=== PATIENT | female | born 1930 | race Caucasian/White ===

== ENCOUNTER → 2017-03-01 | Outpatient (CLI) | payer OTHER | LOC: BMCIMAGING 17:11 | PROVIDERS: ATTEND Family Medicine | DX: M11.232 Other chondrocalcinosis, left wrist (principal); M12.832 Other specific arthropathies, not elsewhere classified, left wrist ==

== ENCOUNTER 2017-06-14 11:50 | Inpatient (IN) | payer OTHER ==
--- NOTE | 2017-06-14 12:12 | EDPHY ---
H & P Stated Complaint: mechanical fall Time Seen by Provider: 06/14/17 12:11 HPI/ROS: CHIEF COMPLAINT: Mechanical fall, headache, pelvic pain HISTORY OF PRESENT ILLNESS: The patient presents to the ED with complaints of headache which is generalized in nature following a mechanical fall. The patient is anticoagulated with Pradaxa. Additionally, the patient has mild pain in her left and right groin. She is not attempted ambulation since the fall. She denies any neck pain, chest pain, difficulty breathing, shortness of breath, numbness, weakness, palpitations or other acute complaints. REVIEW OF SYSTEMS: A comprehensive 10 point review of systems is otherwise negative aside from elements mentioned in the history of present illness. Source: Patient Exam Limitations: No limitations - Personal History Current Tetanus/Diphtheria Vaccine: Unsure Current Tetanus Diphtheria and Acellular Pertussis (TDAP): Unsure - Medical/Surgical History Other PMH: dementia, atrial fibrillation - Social History Smoking Status: Unknown if ever smoked - Physical Exam Exam: General Appearance: Alert, no distress Head: Atraumatic Eyes: Pupils equal, round, reactive ENT, Mouth: No hemotympanum, no oral trauma Neck: Nontender, trachea midline Respiratory: No chest wall tender, subcutaneous air, lungs clear bilaterally Cardiovascular: Regular rate and rhythm Abdomen: Abdomen is soft and nontender, pelvis stable Skin: No lacerations, No abrasion Back: No midline T/L/S pain Extremities: Tenderness to deep palpation and left and right groin, normal range of motion bilateral hips Neurological: A&Ox3, normal motor function, normal sensory exam Constitutional: Initial Vital Signs Temperature (C) 36.7 C 06/14/17 11:57 Heart Rate 78 06/14/17 11:57 Respiratory Rate 15 06/14/17 11:57 Blood Pressure 119/64 06/14/17 11:57 O2 Sat (%) 92 06/14/17 11:57 O2 Delivery Mode Room Air Allergies/Adverse Reactions: Penicillins Allergy (Verified 06/14/17 11:57) Rash MERCURY Allergy (Uncoded 03/15/12 12:56) Rash Home Medications: Medication Instructions Recorded Cholecalciferol Vit D3 [Vitamin D 3,000 units PO DAILY 03/14/12 1000 units (OTC)] Docusate Sodium [Colace 100 MG 100 mg PO HS 03/14/12 (OTC)] Dronedarone HCl [Multaq 400 mg 400 mg PO BIDMEAL 03/14/12 (RX)] Magnesium Oxide [Magnesium Oxide 200 mg PO BID 03/14/12 400 mg (OTC)] Multivitamins [Multivitamin (OTC)] 1 each PO DAILY 03/14/12 Warfarin Sodium [Coumadin (RX)] 2.5 mg PO .MO,WD,FR,SA,DÍAZ 03/14/12 Warfarin Sodium [Coumadin (RX)] 5 mg PO .TUT 03/14/12 Calcium Carbonate [Oyster Shell 1,000 mg PO DAILY 03/15/12 Calcium 500 mg (OTC)] Pharmacy Completed Med List 03/1503/15/12 Medical Decision Making - Diagnostics EKG Interpretation: EKG: Complete interpretation has been separately recorded in the [facility] archive. Summary impression: Atrial fibrillation, rate 104, right bundle branch block Imaging Results: Imaging Impressions Head CT 06/14/17 12:10 Impression: 1. Stable moderate to marked atrophy. 2. No hemorrhage, mass effect, or definite acute peripheral infarct. 3. Stable moderate to marked microvascular ischemic disease. If symptoms worsen, additional imaging may be necessary. Findings discussed with Nathanael Lowe at 13:10 hour, 06/14/2017. Pelvis X-Ray 06/14/17 12:10 Impression: No fracture identified. ED Course/Re-evaluation: The patient presents to emergency department with acute headache following a mechanical fall. She is anticoagulated with Pradaxa. Because of this, she was taken for a stat CT scan of the head to evaluate for possible intracranial hemorrhage. Fortunately, the results of this study demonstrate no evidence of intracranial hemorrhage or other acute traumatic injury. The patient's pelvic x-ray demonstrates no evidence of an acute fracture. Jeovany tempted to ambulate the patient in the emergency department. She is unable to safely ambulate and is having a fair amount of pain in both right left groin. At this point time I do feel she will need to be admitted to the hospital she is clearly a fall risk. She will undergo evaluation by physical therapy and occupational therapy. Consultation was made with the hospitalist service at 2:00 p.m.. I spoke with Dr. Krunal Bills. She will admit the patient. Laboratory database: Patient has a normal hemoglobin and hematocrit. Serum electrolytes are within normal limits. INR was elevated at 1.5. Differential Diagnosis: Differential diagnosis considered includes intracranial hemorrhage, skull fracture, pelvic fracture, hip fracture, hip contusion, retroperitoneal hemorrhage - Data Points Medications Given: Discontinued Medications Fentanyl (Sublimaze) 50 mcg IVP ONCE ONE Stop: 06/14/17 14:35 Last Admin: 06/14/17 15:08 Dose: 50 mcg Sodium Chloride (Ns) 1,000 mls @ 0 mls/hr IV EDNOW ONE; Wide Open PRN Reason: Protocol Stop: 06/14/17 14:04 Last Admin: 06/14/17 14:21 Dose: 1,000 mls Departure - Departure Disposition: [facility] Inpatient Acute Clinical Impression: Fall, Contusion, hip Condition: Good
[2017-06-14] MEDS ORDERED: NS 1,000 ML IV ONE (14:03)
--- NOTE | 2017-06-14 14:20 | CPEKG ---
Heart Rate: 104 RR Interval: 577 QRSD Interval: 162 QT Interval: 388 QTC Interval: 511 QRS [place]: 110 T Wave [place]: -36 EKG Severity - ABNORMAL ECG - EKG Impression: ATRIAL FIBRILLATION, V-RATE 70-152 EKG Impression: RIGHT BUNDLE BRANCH BLOCK EKG Impression: LVH BY VOLTAGE Electronically Signed By: Nathanael Lowe 14-Jun-2017 14:32:19
[2017-06-14 14:32] LABS: % IMMATURE GRANULYOCYTES 0.7 % (0.0-1.1); ADD DIFF? NO; ADD MORPH? NO; ADD SCAN? YES; ATYPICAL LYMPHOCYTE FLAG 0 (0-99); FRAGMENT RBC FLAG 0 (0-99); HEMATOCRIT 45.4 % (38.0-47.0); HEMOGLOBIN 14.8 g/dL (12.6-16.3); LEFT SHIFT FLG 0 (0-99); LIPEMIA HEMOLYSIS FLAG 80 (0-99); MEAN CELL HEMOGLOBIN CONCENTR. 32.6 g/dL (32.4-36.7); MEAN CELL VOLUME 88.8 fL (81.5-99.8); PLATELET COUNT 147 10^3/uL (150-400); RED BLOOD CELL COUNT 5.11 10^6/uL (4.18-5.33); RED CELL DISTRIBUTION WIDTH 15.2 % (11.5-15.2)
[2017-06-14] MEDS ORDERED: fentaNYL 100 MCG/2 ML INJ IVP ONE (14:34)
[2017-06-14 14:36] LABS: PLATELET CLUMPS FLAG 300 (0-99)
[2017-06-14 14:41] LABS: INR 1.51 (0.83-1.16); PROTIME(PATIENT) 18.2 SEC (12.0-15.0)
[2017-06-14 14:42] LABS: APTT 39.9 SEC (23.0-38.0)
[2017-06-14 14:46] LABS: ANION GAP 15 mEq/L (8-16); CALCIUM 9.4 mg/dL (8.5-10.4); CARBON DIOXIDE 23 mEq/l (22-31); CHLORIDE 104 mEq/L (97-110); CREATININE 1.1 mg/dL (0.6-1.0); GLOMERULAR FILTRATION RATE 47; GLUCOSE 118 mg/dL (70-100); POTASSIUM 3.5 mEq/L (3.5-5.2); SODIUM 142 mEq/L (134-144)
[2017-06-14] MEDS ORDERED: fentaNYL 100 MCG/2 ML INJ ONE (14:58)
[2017-06-14 15:14] LABS: SCAN NEGATIVE
[2017-06-14] MEDS ORDERED: ONDANSETRON DISINTEGRATING 4 MG TAB PO PRN (16:16)
[2017-06-14] MEDS ORDERED: ONDANSETRON 4 MG/2 ML VIAL IVP PRN (16:16)
[2017-06-14] MEDS ORDERED: oxyCODONE IR 5 MG TAB PO PRN (16:16)
[2017-06-14] MEDS ORDERED: HYDROmorphONE/DILAUDID 1 MG/ML SYR IVP PRN (16:16)
--- NOTE | 2017-06-14 17:51 | GHP ---
[f rep st] HISTORY AND PHYSICAL DATE OF ADMISSION: 06/14/2017 CHIEF COMPLAINT: Fall and bilateral groin pain. HISTORY OF PRESENT ILLNESS: This is an 87-year-old female, who has a past medical history that incl udes relatively advanced dementia as well as persistent atrial fibrillation on chronic anticoagulati on who presents status post a mechanical fall while at the gym. Per patient's daughter present at [facility], the patient was working with her personal care home administrator when she essentially tripped over her own feet and fell, landing on her hip. It does sound as if the parent trainer was able to capture her as she w as falling and absorb some of her weight as she fell. She did not hit her head. She did have signi ficant pain following the fall and therefore was brought to the emergency department for further diego luation. At the time of initial evaluation, she was complaining largely of bilateral medial groin pain. Both a head CT and pelvic x-ray were negative. She did, however, have persistent inability to walk seco ndary to pain with any kind of weightbearing. This was most notable on the right side. She otherwi se denies any recent changes to her health. A lot of this history was obtained from patient's ama connor who is present at bedside. As mentioned above, the patient does have significant dementia. Javi sesay noticed that since she returned from a trip to [place] several weeks ago, she has been more f atigued and a bit more confused than her usual baseline although this does seem to be improving. Lj flowers notes that she frequently struggles with worsening dementia symptoms when she has a significa nt change to her routine or over-exerts herself. PAST MEDICAL HISTORY: Includes: 1. Persistent atrial fibrillation. 2. Hypertension. 3. History of breast cancer. 4. GERD. 5. TIFFANIE, not tolerating CPAP. 6. Recurrent vertigo. 7. Advanced dementia. PAST SURGICAL HISTORY: Includes: 1. Bilateral mastectomy. 2. Tonsillectomy. 3. x2. FAMILY HISTORY: Significant for 3 siblings with atrial fibrillation. SOCIAL HISTORY: The patient currently resides at [facility] which is a locked unit. 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 She has a remote history of tobacco use. She has 2 grown children and i s . She is a never smoker. REVIEW OF SYSTEMS: 10-point review of systems obtained and negative, except as per HPI. HOME MEDICATIONS: 1. Warfarin. 2. Multivitamin. 3. Magnesium oxide. 4. Multaq. 5. Docusate. 6. Cholecalciferol. 7. Calcium. ALLERGIES: Include penicillin. PHYSICAL EXAMINATION: VITAL SIGNS: BP 153/107, heart rate 110, respiratory rate 20, O2 sats 90% on room air, temperature is 36.7. GENERAL APPEARANCE: This is an elderly female. She is awake and a lert. She is in no acute distress. EYES: Anicteric. HENT: Oropharynx clear. CARDIOVASCULAR: I rregularly irregular. No murmurs, rubs, or gallops appreciated. PULMONARY: CTA bilaterally to ant erior exam. ABDOMEN: Soft, nontender. Bowel sounds are present. EXTREMITIES: No clubbing, cyano sis, or edema. She has some mild tenderness to palpation present over her posterior hip near the in sertion site for the ileofemoral ligament. She does have what appears to be normal range of motion bilaterally. Otherwise, no clubbing, cyanosis or edema. SKIN: Warm, dry, well perfused. NEURO/PS YCH: Appropriate but evidence of significant dementia noted and patient often seems to be confabula ting. DIAGNOSTIC DATA: Labs reviewed. Significant for white blood cell count of 14.2, hematocrit of 45.4 , platelets of 147. Coags notable for an INR of 1.5. Creatinine of 1.1. EKG personally reviewed and interpreted, shows atrial fibrillation, left bundle branch block. Rate is 104. Pelvic x-ray reviewed, interpreted. Shows no acute fracture. Pelvic ring appears intact. Head CT shows stable moderate to marked atrophy without any acute findings. ASSESSMENT AND PLAN: This is an 87-year-old female, past medical history of dementia as well as atr ial fibrillation presenting status post mechanical fall with bilateral groin pain. 1. Mechanical fall. It does sound as if the patient has a chronically abnormal gait per her daught er with some shuffling steps, which is what led to her fall. There is no report of any preceding sy mptoms or any loss of consciousness. Head CT was unremarkable despite patient being on anticoagulat ion. Will ask physical therapy/occupational therapy to evaluate. 2. Bilateral groin pain. This does seem to have significantly improved since admission. Nothing r eally concerning on exam. X-ray was not remarkable for any acute fracture. If pain should return o r the patient have difficulty with ambulation, I would consider further imaging with CT or MRI but a t this point, we will plan just for physical therapy and occupational therapy to evaluate and p.r.n. pain medications. 3. Atrial fibrillation. The patient chronically is in atrial fibrillation. Her rate is currently slightly high but this is in the setting of fall and acute pain. We will resume her home medication s. We will have pharmacy manage her anticoagulation as her INR currently is subtherapeutic. We chano l hold off on bridging her, given that she is not a significantly high risk patient. She does have a [id number] of 4, for her age, sex and hypertension. 4. Hypertension. Will continue her home medications. Blood pressure has been well controlled sinc e arrival. 5. Dementia. This is relatively advanced per her daughter. She does reside at [place], and [facility] can be reached for further information at [phone]. This is a locked unit and apparently she has been doing fairly well there. 6. Chronic kidney disease. Baseline creatinine runs between 1 and 1.1, where she is currently. We will renally adjust medications. 7. Disposition: Observation status. If patient is able to ambulate safely, she likely can be disch arged home in the morning. Physical therapy/occupational therapy will need to evaluate. Care plan was reviewed with her daughter at length at bedside. CODE STATUS: Daughter was uncertain but knows that she does have this on file at her care facility. Explained that for now she will be full code. We will attempt to obtain this information from her facility. /[id number]/MODL
[2017-06-14] MEDS ORDERED: DRONEDARONE HCL 400 MG TAB PO ONE (18:20)
[2017-06-14] MEDS ORDERED: ASPIRIN EC 325 MG TAB PO PRN (21:26)
[2017-06-14] MEDS ORDERED: ACETAMINOPHEN 325 MG TAB PO PRN (21:26)
[2017-06-14] MEDS ORDERED: DILTIAZEM 25 MG/5 ML VIAL IVP ONE (21:30)
[2017-06-15] MEDS ORDERED: DILTIAZEM 125 MG in D5W 125 ML IV SCH (02:15)
[2017-06-15] MEDS ORDERED: DILTIAZEM 25 MG/5 ML VIAL IVP ONE (02:15)
[2017-06-15] MEDS ORDERED: ENOXAPARIN 30 MG/0.3 ML SYR SC SCH (09:00)
[2017-06-15] MEDS: DABIGATRAN ETEXILATE MESYL 150 MG CAP PO SCH ×2 (09:32→17:41)
[2017-06-15] MEDS: RIVASTIGMINE TD SCH (09:32)
[2017-06-15] MEDS: CHOLECALCIFEROL VIT D3 1,000 UNITS TAB PO SCH (09:32)
[2017-06-15] MEDS: VENLAFAXINE HCL 25 MG TAB PO SCH ×2 (09:33→20:14)
[2017-06-15] MEDS: ACETAMINOPHEN 325 MG TAB PO PRN ×2 (09:44→17:40)
[2017-06-15] MEDS: DILTIAZEM 60 MG TAB PO SCH ×2 (10:28→17:40)
[2017-06-15 10:36] LABS: % IMMATURE GRANULYOCYTES 0.5 % (0.0-1.1); ABSOLUTE IMMATURE GRANULOCYTES 0.05 10^3/uL (0.00-0.10); ADD DIFF? NO; ADD MORPH? NO; ADD SCAN? YES; ATYPICAL LYMPHOCYTE FLAG 0 (0-99); FRAGMENT RBC FLAG 0 (0-99); HEMATOCRIT 39.4 % (38.0-47.0); HEMOGLOBIN 12.9 g/dL (12.6-16.3); LEFT SHIFT FLG 0 (0-99); LIPEMIA HEMOLYSIS FLAG 80 (0-99); MEAN CELL HEMOGLOBIN 28.8 pg (27.9-34.1); MEAN CELL HEMOGLOBIN CONCENTR. 32.7 g/dL (32.4-36.7); MEAN CELL VOLUME 87.9 fL (81.5-99.8); RED BLOOD CELL COUNT 4.48 10^6/uL (4.18-5.33); RED CELL DISTRIBUTION WIDTH 15.3 % (11.5-15.2)
[2017-06-15 10:43] LABS: ALANINE AMINOTRANSFERASE 37 IU/L (9-52); ALBUMIN 3.6 g/dL (3.5-5.0); ALKALINE PHOSPHATASE 87 IU/L (38-126); ANION GAP 11 mEq/L (8-16); ASPARTATE AMINOTRANSFERASE 35 IU/L (14-46); CALCIUM 8.9 mg/dL (8.5-10.4); CARBON DIOXIDE 22 mEq/l (22-31); CHLORIDE 107 mEq/L (97-110); CREATININE 0.7 mg/dL (0.6-1.0); GLOMERULAR FILTRATION RATE > 60; GLUCOSE 127 mg/dL (70-100); POTASSIUM 3.8 mEq/L (3.5-5.2); SODIUM 140 mEq/L (134-144); TOTAL PROTEIN 6.4 g/dL (6.3-8.2)
[2017-06-15 10:48] LABS: PLATELET CLUMPS FLAG 300 (0-99)
[2017-06-15 11:10] LABS: SCAN NEGATIVE
[2017-06-15 13:18] LABS: COLOR YELLOW; LEUKOCYTE ESTERASE,URINE NEGATIVE (NEGATIVE); NITRITE,URINE NEGATIVE (NEGATIVE)
[2017-06-15 13:29] LABS: BACTERIA TRACE /hpf (NONE SEEN); MUCUS TRACE /lpf (NONE-1+)
[2017-06-15] MEDS: LIDOCAINE 5% 1 EA PATCH TD SCH (15:57)
--- NOTE | 2017-06-15 19:07 | HOSPPROG ---
Hospitalist Progress Note Assessment/Plan: assessment: 87-year-old female presents with mechanical fall, acute hip pain in the setting of severe dementia and AFib RVR Plan: 1. fall. Mechanical, resulting in bruising of the left hip and potentially bursitis -attempt to manage hip pain without narcotics, namely Lidoderm patch, Tylenol, ice pack and heat pad -performed extensive x-rays of the hip there is no osseous fracture -counseled the patient and her daughter that further evaluation with CT or MRI imaging would be of limited value as the patient would not be a surgical candidate for a more advanced muscular surgery which would require upwards of 6 weeks of focused rehab which the patient would most likely be unable to tolerate or participate in affectively -continue to work with physical and occupational therapy -the patient is physically and functionally unable to care for self at this point she requires full assistance, / care, lower level of care unable to be obtained for the patient at this time 2. atrial fibrillation with acute rapid ventricular response. Most likely exacerbated by mechanical fall and pain, placed on diltiazem drip overnight -wean off of drip as we cycle in the home oral doses of diltiazem -remain off of systemic anticoagulation as she did have significant GI bleed -continue to monitor on telemetry to gauge effectiveness 3. Chronic kidney disease stage 3. Baseline creatinine 1.1, continue to monitor serum creatinine level 4. suspected atelectasis. Secondary to immobility, provide incentive spirometer 5. Severe dementia. Patient lives in the memory care unit of [facility], she receives assistance with ADLs but the present time she will require complete assistance and this is unable to be provided at her home residence at this time -continue working with case management, physical therapy, patient's facility Diet. Regular as tolerated Prophylaxis. High risk patient, Lovenox 30 Code. Full at present Disposition. Upgraded to inpatient admission status, anticipated length stay greater than 48 hours for reasonable medical necessity including severely demented patient unable to care for self, placing her high safety risk if discharged to an inadequate level of care no lower level of care available at this time, continues to receive pain management Subjective: counseled patient and daughter extensively regarding requirements for safe discharge, counseled regarding safe management of pain Objective: Vital Signs Temp Pulse Resp BP Pulse Ox 37.1 C 77 20 111/65 90 L 06/15/17 16:42 06/15/17 16:42 06/15/17 16:42 06/15/17 16:42 06/15/17 16:42 Laboratory Results 06/15/17 10:15 06/15/17 10:15 06/14/17 06/15/17 06/16/17 05:59 05:59 05:59 Intake Total 1086 200 Balance 1086 200 PT 18.2 SEC (12.0-15.0) H 06/14/17 14:20 INR 1.51 (0.83-1.16) H 06/14/17 14:20 - Time Spent With Patient Time Spent with Patient: greater than 35 minutes Time Spent with Patient: Greater than 35 minutes spent on this patients care, greater than 50% of time spent counseling, educating, and coordinating care regarding the above mentioned plan. - Physical Exam Constitutional: chronically ill appearing, uncomfortable ( with mobility), other ( aged appearing) Cardiovascular: irregularly irregular, tachycardia, No edema Respiratory: inspiratory crackles ( bilateral bases), No expiratory wheeze, No bronchial breath sounds Musculoskeletal: other ( pain with internal and external rotation of left femur , tenderness over the left trochanteric bursa, no tenderness to palpation in the bilateral groin) Neurologic: sensation intact bilaterally, other ( alert awake oriented times [address], not to time) Psychiatric: encephalopathic, poor insight, poor memory, other ( concentration is 7/7 but with significant delayed thought process) ICD10 Worksheet Patient Problems: Problems Problem Status Onset Fall Acute Contusion, hip Acute
[2017-06-15] MEDS: EUCERIN LOTION TP SCH (20:58)
[2017-06-15] MEDS: TERBINAFINE 30 GM CRTUBE TP SCH (20:59)
[2017-06-15] MEDS: PATCH REMOVAL 1 EA PATCH TD SCH (20:59)
[2017-06-16 05:09] LABS: % IMMATURE GRANULYOCYTES 0.3 % (0.0-1.1); ABSOLUTE IMMATURE GRANULOCYTES 0.03 10^3/uL (0.00-0.10); ADD DIFF? NO; ADD MORPH? NO; ADD SCAN? YES; ATYPICAL LYMPHOCYTE FLAG 0 (0-99); FRAGMENT RBC FLAG 0 (0-99); HEMATOCRIT 36.9 % (38.0-47.0); HEMOGLOBIN 12.1 g/dL (12.6-16.3); LEFT SHIFT FLG 0 (0-99); LIPEMIA HEMOLYSIS FLAG 80 (0-99); MEAN CELL HEMOGLOBIN 28.9 pg (27.9-34.1); MEAN CELL HEMOGLOBIN CONCENTR. 32.8 g/dL (32.4-36.7); MEAN CELL VOLUME 88.1 fL (81.5-99.8); PLATELET COUNT 110 10^3/uL (150-400); RED BLOOD CELL COUNT 4.19 10^6/uL (4.18-5.33); RED CELL DISTRIBUTION WIDTH 15.2 % (11.5-15.2)
[2017-06-16 05:20] LABS: PLATELET CLUMPS FLAG 300 (0-99)
[2017-06-16 05:47] LABS: SCAN NEGATIVE
[2017-06-16] MEDS ORDERED: oxyCODONE IR 5 MG TAB PO PRN (08:45)
[2017-06-16] MEDS: DILTIAZEM 60 MG TAB PO SCH (09:49)
[2017-06-16] MEDS: VENLAFAXINE HCL 25 MG TAB PO SCH ×2 (09:49→19:59)
[2017-06-16] MEDS: DABIGATRAN ETEXILATE MESYL 150 MG CAP PO SCH ×2 (09:49→18:43)
[2017-06-16] MEDS: CHOLECALCIFEROL VIT D3 1,000 UNITS TAB PO SCH (09:50)
[2017-06-16] MEDS: LIDOCAINE 5% 1 EA PATCH TD SCH (09:50)
--- NOTE | 2017-06-16 10:40 | HOSPPROG ---
Hospitalist Progress Note Assessment/Plan: assessment: 87-year-old female presents with mechanical fall, acute hip pain in the setting of severe dementia and AFib RVR Plan: 1. Fall. Mechanical, resulting in bruising of the left hip, possible bursitis, and possible minor ligamentous/tendon injury -pain control improving w/ Lidoderm patch, Tylenol, ice pack and heat pad -performed extensive x-rays of the hip, there is no osseous fracture -conservative mgmt indicated w/ PT and WBAT -continue to work with physical and occupational therapy -the patient is physically and functionally unable to care for self at this point she requires full assistance, 10/06 care, lower level of care unable to be obtained for the patient at this time, plan for [facility] to arrange 10/06 care w/ PT/RN 2. Atrial fibrillation with acute rapid ventricular response. Most likely exacerbated by mechanical fall and pain, off dilt gtt -RVR continues, increase dilt CD to 300mg daily and gauge effectiveness -off anticoagulation due to falls 3. Chronic kidney disease stage 3. Baseline creatinine 1.1, continue to monitor serum creatinine level 4. Suspected atelectasis. Secondary to immobility, provide incentive spirometer 5. Severe dementia. Patient lives in the memory care unit of [facility] she receives assistance with ADLs but the present time she will require complete assistance and this is unable to be provided at her home residence at this time -continue working with case management, physical therapy, patient's facility Diet. Regular as tolerated Prophylaxis. High risk patient, Lovenox 30 Code. Full at present Disposition. ADD 06/17 to [place] w/ 10/06 and home care, services currently unavailable at this time Subjective: Patient does not recall why she is in the hospital,, improving mobility Objective: Vital Signs Temp Pulse Resp BP Pulse Ox 36.5 C 88 18 138/89 H 96 06/16/17 07:24 06/16/17 07:24 06/16/17 07:24 06/16/17 07:24 06/16/17 07:24 Laboratory Results 06/16/17 03:51 06/15/17 06/16/17 06/17/17 05:59 05:59 05:59 Intake Total 100 Output Total 150 Balance -50 PT 18.2 SEC (12.0-15.0) H 06/14/17 14:20 INR 1.51 (0.83-1.16) H 06/14/17 14:20 - Pending Discharge Pending Discharge Within 24 Hours: Yes Pending Discharge Date: 06/17/17 Pending Discharge Time: 11:00 - Physical Exam Constitutional: no apparent distress, appears nourished, not in pain Cardiovascular: irregularly irregular, tachycardia, No systolic murmur, No edema Respiratory: no respiratory distress, no rales or rhonchi, clear to auscultation Gastrointestinal: normoactive bowel sounds, soft, non-tender abdomen, no palpable masses, No distension Musculoskeletal: other (Tenderness over the left trochanteric bursa, no tenderness in the groin muscle insertion points, 4/5 motor strength left lower extremity) Psychiatric: interacting appropriately, not anxious, encephalopathic, poor memory, No agitated ICD10 Worksheet Patient Problems: Problems Problem Status Onset Fall Acute Contusion, hip Acute
[2017-06-16] MEDS: RIVASTIGMINE TD SCH (11:04)
[2017-06-16] MEDS: DILTIAZEM CD 300 MG CAP PO SCH (12:47)
[2017-06-16] MEDS: ACETAMINOPHEN 325 MG TAB PO PRN ×2 (14:36→19:59)
[2017-06-16] MEDS: PATCH REMOVAL 1 EA PATCH TD SCH (20:02)
[2017-06-16] MEDS: EUCERIN LOTION TP SCH (20:02)
[2017-06-16] MEDS: TERBINAFINE 30 GM CRTUBE TP SCH (20:02)
[2017-06-17 06:02] VITALS: RESP 16
[2017-06-17 07:19] VITALS: O2SAT 95
[2017-06-17] MEDS: DILTIAZEM CD 300 MG CAP PO SCH (08:21)
[2017-06-17] MEDS: CHOLECALCIFEROL VIT D3 1,000 UNITS TAB PO SCH (08:21)
[2017-06-17] MEDS: DABIGATRAN ETEXILATE MESYL 150 MG CAP PO SCH (08:21)
[2017-06-17] MEDS: VENLAFAXINE HCL 25 MG TAB PO SCH (08:21)
[2017-06-17] MEDS: LIDOCAINE 5% 1 EA PATCH TD SCH (08:21)
[2017-06-17] MEDS: RIVASTIGMINE TD SCH (08:22)
--- NOTE | 2017-06-17 10:32 | PDIAF ---
- Diagnosis Diagnosis: Mechanical Fall, Dementia, Permanent Afib, L. hip pain Code Status: Full Code - Medication Management Discharge Medications: Medications to Continue on Transfer Acetaminophen [Tylenol 325mg (*)] 650 mg PO Q4H PRN 06/14/17 [Last Taken Unknown ] Aspirin EC [Aspirin EC 325 mg (*)] 325 mg PO DAILY PRN 06/14/17 [Last Taken Unknown] Cholecalciferol Vit D3 [Vitamin D3 (*)] 2,000 units PO DAILY@06/14/17 [Last Taken Unknown] Dabigatran Etexilate Mesyl [Pradaxa 150 MG (*)] 150 mg PO BID@,06/14/17 [ Last Taken Unknown] Mineral Oil/I-Prop Myr/Water [Hydrocerin Lotion] 1 dayron TP 06/14/17 [Last Taken Unknown] Rivastigmine [Exelon 9.5mg/24 hrs] 1 each TD DAILY@06/14/17 [Last Taken Unknown] Terbinafine HCl [LamISIL AT Cream (*)] 1 gm TP 06/14/17 [Last Taken Unknown] Venlafaxine HCl 50 mg PO BID@06/14/17 [Last Taken Unknown] Diltiazem Cd [Cardizem ER 300 MG (*)] 300 mg PO DAILY #30 cap 06/17/17 [Last Taken Unknown] Lidocaine 5% [Lidoderm 5% Patch (*)] 1 ea TD DAILY #30 patch 06/17/17 [Last Taken Unknown] Patch Removal 1 ea TD DAILY21 patch 06/17/17 [Last Taken Unknown] Long-Term Antibiotics: NA Discharge Medications: Refer to the Discharge Home Medication list for PRN reason. PICC Care - Routine: N/A - Orders Services needed: Home Care, Registered Nurse, Physical Therapy Home Care Face to Face: I certify that this patient was under my care and that I had the required [id number] encounter meeting the encounter requirements on the discharge day. My findings support the fact that the patient is homebound as defined in CMS Chapter 7 Medicare Benefits Manual 30.1.1, The condition of the patient is such that there exists a normal inability to leave home and consequently, leaving home would require a considerable and taxing effort. Oxygen: NA Diet Recommendation: no restrictions on diet Muhammad: Not applicable Activity/Weight Bearing Restrictions: as tolerated, focus on L. lower extremity strength training Equipment: walker - Follow Up Care Current Providers and Referrals: Antelmo Álvarez MD [Medical Doctor] - follow up in 2 weeks Patient,NotPresent [Primary Care Provider] - As per Instructions Heidi Bowser MD [Medical Doctor] - follow up in 1 week (Please call to schedule appointment for early next week)
--- NOTE | 2017-06-17 10:42 | PDDCSUM ---
Discharge Summary Discharge Summary: DISCHARGE SUMMARY FOLLOW-UP ITEMS: Outpatient Orthopedics and Cardiology evaluations DATE OF ADMISSION: 06/14/2017 DATE OF DISCHARGE: 06/17/2017 DISCHARGE DIAGNOSES: 1. Acute mechanical fall 2. Permanent atrial fibrillation 3. Chronic kidney disease stage 3 4. Suspected atelectasis 5. Severe dementia 6. Acute left hip pain CONSULTATIONS: None PROCEDURES / IMAGING: X-ray of left hip, pelvis, demonstrating no acute fracture CHIEF COMPLAINT: Acute fall SUBJECTIVE: Patient is feeling well at time discharge, she is not experiencing any pain in her left hip, she is experiencing some weakness in her left lower extremity PHYSICAL EXAM ON DISCHARGE: Systolic blood pressure is 110, heart rate 90, satting well on room air, alert awake oriented x1 to person only, no apparent distress, not anxious, minimal tenderness over the left trochanteric bursa, motor strength approximately 3/5 left lower extremity, 4/5 right lower extremity, no painful flexion of the left hip LABS ON DISCHARGE: Creatinine 0.7 time discharge HOSPITAL COURSE BY PROBLEM: 1. Mechanical fall. Patient experienced acute mechanical fall secondary to shuffling of her feet and imbalance while she was attempting to work with physical therapy. Her imbalance and shuffling are most likely physical manifestations of her severe dementia and where the cause of the fall. She did not strike her head consequently no head imaging was performed. We imaged her pelvis, hip, femur and no fracture was identified. She will continue to be exceptionally high fall risk and will be requiring 24/7 physical assistance at [facility]. She was unable to obtain this assistance over the weekend and was therefore not a safe discharge home until this assistance was available. We recommend ongoing use of walker and assistance with ambulation and transfers. 2. Permanent atrial fibrillation. Patient experienced acute rapid ventricular response in the setting of pain and her diltiazem dosage was increased to 300 mg continuous dosing daily. This demonstrated good effectiveness with heart rate ranging between 80 and 90. She was continued on her Pradaxa and this should be reassessed in the outpatient setting if she has any ongoing falls, to consider discontinuation. She will follow up with her primary night shift supervisor and I have discussed her case with him. 3. Chronic kidney disease stage 3. Baseline creatinine is around 1.1, patient' s creatinine was better than baseline at time of discharge. 4. Suspected atelectasis. Secondary to immobility, patient received incentive spirometer, did not require supplemental oxygen at time of discharge. 5. Severe dementia. Patient lives in the memory care unit at the [facility] and she receives assistance with ADLs but after mechanical fall and resultant deconditioning and weakness, the patient is requiring full 24/7 care. Once this level of service was able to be obtained, the patient was safely discharged. She was continued on her dementia medications and she is mentating at her baseline at discharge. 6. Acute left hip pain. Most likely secondary to bruising of the muscle and potentially trochanteric bursitis with some mild tenderness to palpation over the left trochanteric bursa. She received narcotic pain management with Tylenol , Lidoderm patch, icing, heating, and I would recommend ongoing management with this strategy to avoid encephalopathy. It should be noted that the patient's strength in her left lower extremity is somewhat impaired at time of discharge and I suspect this is secondary to disuse deconditioning during this hospitalization. We recommend that she engage with physical therapy and that she be weight-bearing as tolerated, receiving physical assistance with transfers and ambulation. Although there is no fracture on x-ray, does not exclude muscle or ligamentous/tendon injury, and I recommended the patient follow up with an orthopedist in approximately 1 week to gauge her level of functioning, so that she also has someone providing further recommendations to the patient and her family. During this hospitalization, I discussed the option of additional imaging with the patient's daughter we agreed not to pursue said imaging because regardless of whether it demonstrated partial tear injury, conservative management with physical therapy would be indicated modality of treatment the patient would not be rushed to surgery with her underlying severe dementia as she would most likely not be able to participate fully in postsurgical rehab. DISCHARGE MEDICATIONS: Please see official discharge medication reconciliation sheet in chart , Lidoderm patch daily, increase diltiazem to 300 mg once daily, continue Pradaxa. DISCHARGE INSTRUCTIONS: Please follow up with Dr. Bowser next week and Dr. Álvarez thereafter. TIME SPENT: Greater than 30 minutes were spent on direct patient care, as well as discharge planning and preparation.
[2017-06-17 12:21] VITALS: BP 110/72; PULSE 91; TEMP 97.5
== END 2017-06-17 13:42 | DRG 556 ==
LOC: EDUNIT# → F3N 15:56 → F2W 20:04 → OBSVTOIN 06-15 19:00
PROVIDERS: ADMIT Internal Medicine; ATTEND Internal Medicine
DX: M25.552 Pain in left hip (principal); W01.0XXA Fall on same level from slipping, tripping and stumbling without subsequent striking against object, initial encounter; F03.90 Unspecified dementia, unspecified severity, without behavioral disturbance, psychotic disturbance, mood disturbance, and anxiety; J98.11 Atelectasis; I48.1 Persistent atrial fibrillation; I12.9 Hypertensive chronic kidney disease with stage 1 through stage 4 chronic kidney disease, or unspecified chronic kidney disease; N18.3 Chronic kidney disease, stage 3 (moderate); K21.9 Gastro-esophageal reflux disease without esophagitis; G47.33 Obstructive sleep apnea (adult) (pediatric); R42 Dizziness and giddiness; Z85.3 Personal history of malignant neoplasm of breast; Z79.01 Long term (current) use of anticoagulants
CPT/HCPCS: 96374; 97110-GP; 97116-GP; 97162-GP; 97166-GO; G0378; G8978-GP-CL; G8979-GP-CK; G8987-GO-CK; G8988-GO-CI; J3010

== ENCOUNTER 2017-08-17 12:22 | Inpatient (IN) | payer OTHER ==
--- NOTE | 2017-08-17 12:16 | EDPHY ---
Medical Decision Making ED Course/Re-evaluation: CHIEF COMPLAINT: HISTORY OF PRESENT ILLNESS: must have 4 elements: Location, Quality, Severity , Duration, Timing, Context, Modifying Factors, Associated Signs and Symptoms REVIEW OF SYSTEMS: A 10 point review of systems was performed and is negative with the exception of the elements mentioned in the history of present illness. PHYSICAL EXAM: HR, BP, O2 Sat, RR. Temp noted General Appearance: Alert, well hydrated, appropriate, and non-toxic appearing. Head: Atraumatic without scalp tenderness or obvious injury Eyes: Pupils equal, round, reactive to light and accommodation, EOMI, no trauma , no injection. Ears: Clear bilaterally, no perforation, normal landmarks Nose: Atraumatic, no rhinorrhea, clear. Throat: There is no erythema or exudates, no lesions, normal tonsils, mucus membranes moist. Neck: Supple, 2+ carotid upstroke, nontender, no lymphadenopathy. Respiratory: No retractions, no distress, no wheezes, and no accessory muscle use. Lungs are clear to auscultation bilaterally. Cardiovascular: Regular rate and rhythm, no murmurs, rubs, or gallops. Bilateral carotid, radial, dorsalis pedis, and posterior tibial pulses intact. Good capillary refill all extremities. Gastrointestinal: Abdomen is soft, nontender, non-distended, no masses, no rebound, no guarding, no peritoneal signs. Musculoskeletal: Normal active ROM of all extremities, atraumatic. Neurological: Alert, appropriate, and interactive. The patient has normal DTRs and non-focal cranial nerves, motor, sensory, and cerebellar exam. Skin: No rashes, good turgor, no nodules on palpation. Past medical history: Past surgical history: Family history: Social history: DIAGNOSTICS/PROCEDURES/CRITICAL CARE TIME: DIFFERENTIAL DIAGNOSIS: MEDICAL DECISION MAKING:
--- NOTE | 2017-08-17 12:27 | EDPHY ---
H & P Constitutional: Initial Vital Signs Temperature (C) 36.4 C 08/17/17 12:41 Heart Rate 71 08/17/17 12:41 Respiratory Rate 16 08/17/17 12:41 Blood Pressure 112/78 08/17/17 12:41 O2 Sat (%) 97 08/17/17 12:41 O2 Delivery Mode Nasal Cannula O2 (L/minute) 2.5 Allergies/Adverse Reactions: Penicillins Allergy (Verified 06/14/17 11:57) Rash MERCURY Allergy (Uncoded 03/15/12 12:56) Rash Home Medications: Medication Instructions Recorded ASPIRIN 08/17/17 Diltiazem 08/17/17 Eliquis 08/17/17 Rivastigmine 08/17/17 Venlafaxine 25MG (*) 08/17/17 Medical Decision Making - Diagnostics Imaging Results: Imaging Impressions Head CT 08/17/17 12:24 Impression: 1. Stable moderate to marked atrophy. 2. No hemorrhage, mass effect, or definite acute peripheral infarct. 3. Stable moderate to marked microvascular ischemic disease. Findings discussed with Kartik Armenta MD at 12:39 hour, 08/17/2017. Head CTA 08/17/17 12:40 Impression: 1. 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 2. Calcified plaque at the origin of small caliber left vertebral artery at the aortic arch with stenosis measuring about 75-85%. 3. Calcified plaque at the origin of the right vertebral artery with stenosis measuring about 60-70%. 4. Moderate calcified plaque right carotid bulb with degree of stenosis measuring 55-65%. 5. Moderate to severe calcified plaque left carotid bulb with stenosis measuring about 75-85%. 6. Severe narrowing of the distal left vertebral artery just below the basilar artery without evidence of associated plaque. This could represent normal variation. Dissection is felt to be unlikely. Note: All calculations were performed using NASCET criteria. Findings discussed with Kartik Armenta MD at 14:10 hour, 08/17/2017. Neck CTA 08/17/17 12:40 Impression: 1. 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 2. Calcified plaque at the origin of small caliber left vertebral artery at the aortic arch with stenosis measuring about 75-85%. 3. Calcified plaque at the origin of the right vertebral artery with stenosis measuring about 60-70%. 4. Moderate calcified plaque right carotid bulb with degree of stenosis measuring 55-65%. 5. Moderate to severe calcified plaque left carotid bulb with stenosis measuring about 75-85%. 6. Severe narrowing of the distal left vertebral artery just below the basilar artery without evidence of associated plaque. This could represent normal variation. Dissection is felt to be unlikely. Note: All calculations were performed using NASCET criteria. Findings discussed with Kartik Armenta MD at 14:10 hour, 08/17/2017. Imaging: Discussed imaging studies w/ train caller Radiologist, I viewed and interpreted images myself ED Course/Re-evaluation: CHIEF COMPLAINT: Unresponsive, right-sided facial droop, Stroke Alert HISTORY OF PRESENT ILLNESS: The patient is an anticoagulated (Eliquis) 86 y/o female with a history of atrial fibrillation arriving via EMS emergently as a stroke alert due to acute unresponsiveness and left-sided facial droop. Per EMS there was some confusion among staff as to whether she was last seen normal at either 9:00 AM or 12:00 PM. It sounds like she was able to shower normally shortly before noon, about 25 minutes prior to arrival. After her shower she was found unresponsive on the bed and staff called EMS. EMS reports patient was responsive only to noxious stimuli and had a possible left-sided facial droop but it is unclear if this is baseline for her. Per EMS, staff denies any recent falls or other trauma. REVIEW OF SYSTEMS: Unobtainable secondary to patient's condition. PHYSICAL EXAM: HR, BP, O2 Sat, RR. Temp noted General Appearance: Well hydrated. Alert to noxious stimuli only, unable to follow commands Head: Atraumatic Eyes: Pupils equal, round, pinpoint. Patient is minimally able to track daughter. No trauma, no injection. Ears: Clear bilaterally, no perforation, normal landmarks Nose: Atraumatic, no rhinorrhea, clear. Throat: There is no erythema or exudates, no lesions, normal tonsils, mucus membranes moist. Neck: Atraumatic. Respiratory: No retractions, no distress, no wheezes, and no accessory muscle use. Lungs are clear to auscultation bilaterally. Cardiovascular: Regular rate and rhythm, no murmurs, rubs, or gallops. Good capillary refill all extremities. Gastrointestinal: Abdomen is soft, no apparent tenderness, non-distended, no masses, no rebound, no guarding, no peritoneal signs. Musculoskeletal: Atraumatic. Neurological: The patient is only responsive to noxious stimuli. She has a spontaneous gag reflex. Pinpoint pupils bilaterally. Skin: No rashes, good turgor, no nodules on palpation. Past medical history: Atrial fibrillation, advanced dementia, breast cancer, recurrent vertigo, hypertension, GERD, TIFFANIE not tolerating CPAP. Past surgical history: Denies Family history: Non-contributory Social history: Accompanied by daughter, lives in [facility], lives in [place] Prior medical records reviewed including admission 06/15/17 for fall. DIAGNOSTICS/PROCEDURES/CRITICAL CARE TIME: Head CT: Atrophy, nothing acute. Head and neck CTA: Profuse stenosis. DIFFERENTIAL DIAGNOSIS: The differential diagnosis for the patient's neurologic deficits included but was not limited to peripheral causes, central causes including CVA, TIA, electrolyte abnormalities and dehydration, cardiogenic causes, atypical causes like migraine syndrome. MEDICAL DECISION MAKIN- I met EMS upon arrival and took report. The patient is an anticoagulated 87 y/o female who presents with acute unresponsiveness onset this morning. On initial assessment, she has pinpoint pupils, is only responsive to painful stimuli, and has a spontaneous gag reflex. I did not see narcotics listed on medication list and her pinpoint pupils concern me for a pontine stroke. Plan for full stroke workup. Patient is not a TPA candidate due to her Eliquis. 1224- Patient sent to CT for non-contrast head CT. 1229- I consulted with [place] neurologist. He confirmed she is not a TPA candidate and will review scans. 1235- Head CT shows nothing acute per Dr. Arrington. Plan for head and neck CTA. 1335- Reassessed patient. She is now responsive and talking. Per daughter she is now at baseline. I reassessed patient and patient is complaining of back pain onset one week ago. She is not able to walk and will be admitted to Dr. Piña. - Data Points Laboratory Results: Laboratory Results 08/17/17 12:45 08/17/17 12:45 08/17/17 08/17/17 08/17/17 13:45 12:45 12:45 WBC RBC Hgb POC Hgb 16.0 gm/dL gm/dL (12.6-16.3) Hct POC Hct 47 % % (38-47) MCV MCH MCHC RDW Plt Count MPV Neut % (Auto) Lymph % (Auto) [place] % (Auto) Eos % (Auto) Baso % (Auto) Nucleat RBC Rel Count Absolute Neuts (auto) Absolute Lymphs (auto) Absolute Monos (auto) Absolute Eos (auto) Absolute Basos (auto) Absolute Nucleated RBC Immature Gran % Immature Gran # PT INR APTT POC Sodium 143 mEq/L mEq/L (134-144) Sodium POC Potassium 3.4 mEq/L mEq/L (3.3-5.0) Potassium POC Chloride 103 mEq/L mEq/L (97-110) Chloride Carbon Dioxide Anion Gap POC BUN 18 mg/dL mg/dL (7-23) BUN Creatinine POC Creatinine 0.7 mg/dL mg/dL (0.6-1.0) Estimated GFR Glucose POC Glucose 98 mg/dL mg/dL (70-100) Calcium Troponin I Beta HCG, Qual NEGATIVE Patient ABO/Rh A POSITIVE Antibody Screen NEGATIVE 08/17/17 08/17/17 08/17/17 12:45 12:45 12:45 WBC 8.30 10^3/uL 10^3/uL (3.80-9.50) RBC 4.82 10^6/uL 10^6/uL (4.18-5.33) Hgb 14.5 g/dL g/dL (12.6-16.3) POC Hgb Hct 44.0 % % (38.0-47.0) POC Hct MCV 91.3 fL fL (81.5-99.8) MCH 30.1 pg pg (27.9-34.1) MCHC 33.0 g/dL g/dL (32.4-36.7) RDW 14.8 % % (11.5-15.2) Plt Count 209 10^3/uL 10^3/uL (150-400) MPV TNP Neut % (Auto) 76.0 % H % (39.3-74.2) Lymph % (Auto) 15.1 % % (15.0-45.0) [place] % (Auto) 7.6 % % (4.5-13.0) Eos % (Auto) 0.7 % % (0.6-7.6) Baso % (Auto) 0.2 % L % (0.3-1.7) Nucleat RBC Rel Count 0.0 % % (0.0-0.2) Absolute Neuts (auto) 6.31 10^3/uL 10^3/uL (1.70-6.50) Absolute Lymphs (auto) 1.25 10^3/uL 10^3/uL (1.00-3.00) Absolute Monos (auto) 0.63 10^3/uL 10^3/uL (0.30-0.80) Absolute Eos (auto) 0.06 10^3/uL 10^3/uL (0.03-0.40) Absolute Basos (auto) 0.02 10^3/uL 10^3/uL (0.02-0.10) Absolute Nucleated RBC 0.00 10^3/uL 10^3/uL (0-0.01) Immature Gran % 0.4 % % (0.0-1.1) Immature Gran # 0.03 10^3/uL 10^3/uL (0.00-0.10) PT 15.9 SEC H SEC (12.0-15.0) INR 1.27 H (0.83-1.16) APTT 28.6 SEC SEC (23.0-38.0) POC Sodium Sodium 142 mEq/L mEq/L (134-144) POC Potassium Potassium 3.6 mEq/L mEq/L (3.5-5.2) POC Chloride Chloride 102 mEq/L mEq/L (97-110) Carbon Dioxide 27 mEq/l mEq/l (22-31) Anion Gap 13 mEq/L mEq/L (8-16) POC BUN BUN 18 mg/dL mg/dL (7-23) Creatinine 0.7 mg/dL mg/dL (0.6-1.0) POC Creatinine Estimated GFR > 60 Glucose 94 mg/dL mg/dL (70-100) POC Glucose Calcium 9.9 mg/dL mg/dL (8.5-10.4) Troponin I < 0.012 ng/mL ng/mL (0.000-0.034) Beta HCG, Qual Patient ABO/Rh Antibody Screen Point of Care Test Results: 08/17/17 12:45 POC Sodium 143 POC Potassium 3.4 POC Chloride 103 POC BUN 18 POC Creatinine 0.7 POC Glucose 98 Departure - Departure Disposition: [facility] Acute Clinical Impression: Catatonia, transient, Unable to ambulate Low back pain Qualifiers: Chronicity: acute Back pain laterality: midline Sciatica presence: without sciatica Qualified Code(s): M54.5 - Low back pain Condition: Fair Referrals: Kobi Muniz DO [Doctor of Osteopathy] - As per Instructions Report Scribed for: Kartik Armenta Report Scribed by: Teresita Bidr Date of Report: 08/17/17 Time of Report: 15:55
[2017-08-17] MEDS ORDERED: IOPAMIDOL (ISOVUE 370) 100 ML BTL IV ONE (12:39)
[2017-08-17 13:09] LABS: % IMMATURE GRANULYOCYTES 0.4 % (0.0-1.1); ABSOLUTE IMMATURE GRANULOCYTES 0.03 10^3/uL (0.00-0.10); ADD DIFF? NO; ADD MORPH? NO; ADD SCAN? YES; ATYPICAL LYMPHOCYTE FLAG 0 (0-99); FRAGMENT RBC FLAG 20 (0-99); HEMOGLOBIN 14.5 g/dL (12.6-16.3); LEFT SHIFT FLG 0 (0-99); LIPEMIA HEMOLYSIS FLAG 80 (0-99); MEAN CELL HEMOGLOBIN 30.1 pg (27.9-34.1); MEAN CELL VOLUME 91.3 fL (81.5-99.8); RED BLOOD CELL COUNT 4.82 10^6/uL (4.18-5.33); RED CELL DISTRIBUTION WIDTH 14.8 % (11.5-15.2)
[2017-08-17 13:10] LABS: PLATELET CLUMPS FLAG 300 (0-99)
--- NOTE | 2017-08-17 13:14 | CPEKG ---
Heart Rate: 67 RR Interval: 896 QRSD Interval: 172 QT Interval: 432 QTC Interval: 456 QRS [place]: 116 T Wave [place]: -5 EKG Severity - ABNORMAL ECG - EKG Impression: ATRIAL FIBRILLATION, V-RATE 57-75 EKG Impression: RIGHT BUNDLE BRANCH BLOCK EKG Impression: LVH BY VOLTAGE Electronically Signed By: Kartik Armenta 17-Aug-2017 14:33:03
[2017-08-17 13:17] LABS: INR 1.27 (0.83-1.16); PROTIME(PATIENT) 15.9 SEC (12.0-15.0)
[2017-08-17 13:18] LABS: APTT 28.6 SEC (23.0-38.0)
[2017-08-17 13:24] LABS: ANION GAP 13 mEq/L (8-16); CALCIUM 9.9 mg/dL (8.5-10.4); CARBON DIOXIDE 27 mEq/l (22-31); CHLORIDE 102 mEq/L (97-110); CREATININE 0.7 mg/dL (0.6-1.0); GLOMERULAR FILTRATION RATE > 60; GLUCOSE 94 mg/dL (70-100); POTASSIUM 3.6 mEq/L (3.5-5.2); SODIUM 142 mEq/L (134-144)
[2017-08-17 13:36] LABS: TROPONIN I < 0.012 ng/mL (0.000-0.034)
[2017-08-17 14:07] LABS: SCAN NEGATIVE
[2017-08-17 14:08] LABS: PLATELET COUNT 209 10^3/uL (150-400)
[2017-08-17] MEDS ORDERED: ACETAMINOPHEN 500 MG TAB PO ONE (16:23)
[2017-08-17] MEDS ORDERED: ACETAMINOPHEN 500 MG TAB ONE (16:27)
[2017-08-17 20:03] LABS: COLOR YELLOW; LEUKOCYTE ESTERASE,URINE NEGATIVE (NEGATIVE); NITRITE,URINE NEGATIVE (NEGATIVE)
[2017-08-17 20:06] LABS: BACTERIA 1+ /hpf (NONE SEEN); MUCUS TRACE /lpf (NONE-1+)
[2017-08-17 20:07] LABS: RBC,URINE NONE SEEN /hpf (0-3)
[2017-08-17] MEDS ORDERED: ONDANSETRON DISINTEGRATING 4 MG TAB PO PRN (21:54)
[2017-08-17] MEDS ORDERED: ONDANSETRON 4 MG/2 ML VIAL IVP PRN (21:54)
[2017-08-17] MEDS ORDERED: ACETAMINOPHEN 325 MG TAB PO PRN (21:54)
[2017-08-17] MEDS ORDERED: NS 1,000 ML IV SCH (22:00)
--- NOTE | 2017-08-17 22:47 | GHP ---
[f rep st] HISTORY AND PHYSICAL DATE OF ADMISSION: 08/17/2017 The patient is a pleasant 87-year-old female with a history of atrial fibrillation on Eliquis who cam e into the ER today as a stroke alert. It sounds like she was in her usual state of health, taking a shower, and then suddenly became unresponsive. She was noted to have pinpoint pupils. She had a st roke alert showing no acute stroke. She was noted to have marked atrophy as well as microvascular is chemic disease. She had CTA of the head and neck showing stenosis. There was a left subclavian calc ified plaque of the left vertebral artery, about 75-85%, and moderate to severe calcified left caroti d bulb stenosis measuring about 75-85%. There was a little narrowing at the distal left vertebral ar migel. The patient subsequently became alert in the emergency department. Tox screen was not sent. It sounds like she arrived to the ER at about 12:22 p.m. and within an hour she was responsive and ta lking. Per her daughter, was at baseline. I am seeing the patient hours later and she is conversant , alert, and responsive although she is encephalopathic and confused and she is having a hard time an swering questions accurately. For example, when I ask her who lives with her, she is mentioning how she has not lived with her daughters since they moved off to college which was likely 40 years ago. She is unable to answer a lot of questions when asked directly. That said, she denies fever, chills, cough, sputum, nausea, vomiting, diarrhea, urgency, frequency, dysuria. REVIEW OF SYSTEMS: Complete review of systems conducted and negative except as noted in the History of Present Illness. PAST MEDICAL HISTORY: 1. Atrial fibrillation, on Eliquis. 2. Breast cancer. 3. Normocytic anemia. 4. Bilateral mastectomies. 5. . 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 . Lives alone. Quit smoking. Drinks occasional ly. PHYSICAL EXAMINATION: PRESENTING VITALS: Temp 36.4, blood pressure 112/78, pulse 71, breathing 16 t imes a minute, 97% on 2 L. GENERAL: No acute distress. HEENT: Sclerae anicteric. Oropharynx travis r. Mucous membranes moist. NECK: Supple without lymphadenopathy or JVD. LUNGS: Clear to ausculta tion bilaterally. HEART: S1, S2. ABDOMEN: Soft, nontender, nondistended. LOWER EXTREMITIES: No edema. Calves are nontender. SKIN: Without rash. NEUROLOGIC: Exam is nonfocal. Strength is symm etric bilaterally. Sensation is intact bilaterally. The patient is encephalopathic, unknown baselin e. LAB: White count 8, hematocrit 44, platelets 209,000. INR is 1.27 in the setting of Eliquis therapy . Sodium 142, potassium 3.6, chloride 102, bicarb 27, BUN 13, creatinine 0.7, glucose 94, troponin l ess than 0.012. Her beta HCG is negative. It is reassuring to know this 87-year-old is not . UA is unremarkable. EKG interpreted by me shows atrial fibrillation at 67 with normal axis and intervals. She has a righ t bundle branch block pattern. Neuro imaging is as discussed in the HPI. Lumbar spine x-ray shows vertebral plana compression deformity at L5, likely news from a few weeks ag o. Questionable inferior endplate deformity on L4 facet arthrosis. I discussed the case Dr. Kartik Ontiveros. ASSESSMENT AND PLAN: An 87-year-old female presents as stroke alert, really with encephalopathy. 1. Question stroke. The patient certainly has a burden of cerebral vascular disease based on her CT A of the head. She is on Eliquis which we will continue. I will start an aspirin. That said, I thi nk this episode is encephalopathy and not a neurovascular event. Will not do further stroke workup. I do think she warrants an aspirin on top of Eliquis on the basis of what we are seeing. 2. Encephalopathy. Reason is uncertain. Dr. Armenta was concerned that she had pinpoint pupils sug gestive of opiate intoxication, or at least opiate use which would be in this patient of advanced age a set up for encephalopathy. That said, will go ahead and send a drug screen to see if it is positi ve for opiates which could be helpful. UA is unremarkable. Chest exam is clear. I think will follo w for this period of time and also it would be helpful to talk to her daughter to understand her base line. 3. Atrial fibrillation. She is rate controlled. Eliquis can be started when her medications have b een reconciled. 4. Prophylaxis. Therapeutically anticoagulated. DISPOSITION: Inpatient status given encephalopathy and the likely need for greater than 2 midnights stay. /[id number]/MODL
[2017-08-17 23:21] LABS: PHENCYCLIDINE URINE BCH 6 ng/ml (NEGATIVE); PHENCYCLIDINE URINE BCH NEGATIVE (NEGATIVE); TETRAHYDROCANNABINOL URINE < 5 ng/mL (NEGATIVE); TETRAHYDROCANNABINOL URINE NEGATIVE (NEGATIVE)
[2017-08-18 06:51] LABS: ANION GAP 13 mEq/L (8-16); CALCIUM 9.7 mg/dL (8.5-10.4); CARBON DIOXIDE 23 mEq/l (22-31); CHLORIDE 105 mEq/L (97-110); CREATININE 0.6 mg/dL (0.6-1.0); GLOMERULAR FILTRATION RATE > 60; GLUCOSE 85 mg/dL (70-100); POTASSIUM 3.3 mEq/L (3.5-5.2); SODIUM 141 mEq/L (134-144)
[2017-08-18 07:04] LABS: TROPONIN I < 0.012 ng/mL (0.000-0.034)
[2017-08-18 08:33] LABS: % IMMATURE GRANULYOCYTES 0.4 % (0.0-1.1); ABSOLUTE IMMATURE GRANULOCYTES 0.03 10^3/uL (0.00-0.10); ADD DIFF? NO; ADD MORPH? NO; ADD SCAN? YES; ATYPICAL LYMPHOCYTE FLAG 0 (0-99); FRAGMENT RBC FLAG 0 (0-99); HEMATOCRIT 38.8 % (38.0-47.0); HEMOGLOBIN 12.9 g/dL (12.6-16.3); LEFT SHIFT FLG 0 (0-99); LIPEMIA HEMOLYSIS FLAG 80 (0-99); MEAN CELL HEMOGLOBIN 29.7 pg (27.9-34.1); MEAN CELL HEMOGLOBIN CONCENTR. 33.2 g/dL (32.4-36.7); MEAN CELL VOLUME 89.2 fL (81.5-99.8); RED BLOOD CELL COUNT 4.35 10^6/uL (4.18-5.33); RED CELL DISTRIBUTION WIDTH 14.6 % (11.5-15.2)
[2017-08-18 08:35] LABS: PLATELET CLUMPS FLAG 300 (0-99)
[2017-08-18] MEDS: ASPIRIN 81 MG CHEWABLE TAB PO SCH (08:48)
[2017-08-18 09:17] LABS: SCAN NEGATIVE
[2017-08-18] MEDS ORDERED: DILTIAZEM 125 MG in D5W 125 ML IV SCH (10:45)
[2017-08-18] MEDS ORDERED: METOPROLOL TARTRATE 50 MG TAB PO ONE (11:03)
--- NOTE | 2017-08-18 11:14 | HOSPPROG ---
Hospitalist Progress Note Assessment/Plan: 87F PMH memory loss based on review of [facility] notes, likely permanent AF, here for episode of unresponsiveness with pinpoint pupils. Noted to have marked atrophy and microvascular ischemic changes on head CT but no acute stroke. Lives at memory care unit #. likely permanent AF: on Eliquis as outpt [id number] of likely 5 rate controlling agent on list from is listed as Dilt CD 300 daily which will be resumed today #. question stroke: imaging shows advanced senescent changes likely c/w her dementia #. 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 LOS: possible D/C back to memory care unit today Subjective: Pt states her father is coming today. Pt is currently driving back to [place]. Objective: Vital Signs Temp Pulse Resp BP Pulse Ox 97.5 F 113 H 18 157/89 H 93 08/18/17 08:06 08/18/17 08:06 08/18/17 08:06 08/18/17 08:06 08/18/17 08:06 Laboratory Results 08/18/17 08:16 08/18/17 06:15 08/17/17 08/18/17 08/19/17 05:59 05:59 05:59 Output Total 50 Balance -50 PT 15.9 SEC (12.0-15.0) H 08/17/17 12:45 INR 1.27 (0.83-1.16) H 08/17/17 12:45 - Physical Exam Constitutional: no apparent distress, appears nourished Eyes: PERRL Ears, Nose, Mouth, Throat: moist mucous membranes, hearing normal Cardiovascular: irregularly irregular, tachycardia Respiratory: no respiratory distress, no rales or rhonchi Gastrointestinal: normoactive bowel sounds, soft, non-tender abdomen Skin: warm, normal color Neurologic: other (only oriented to self) Psychiatric: not anxious ICD10 Worksheet Patient Problems: Problems Problem Status Onset Fall Acute Contusion, hip Acute Catatonia Acute Low back pain Acute Unable to ambulate Acute
[2017-08-18] MEDS ORDERED: ASPIRIN 325 MG TAB PO PRN (12:06)
[2017-08-18] MEDS ORDERED: RIVASTIGMINE TD SCH (12:15)
--- NOTE | 2017-08-18 12:30 | ASMTCMCOM ---
CM Note CM Note Notes: 87 year old female who was admitted after a stroke alertand encephalopathy. She has a hx of Afib, breast CA, anemia. Patient lives at [facility] in [place]. Spoke to a caregiver who reports that patient is at her baseline mentally but has been complaining about hip and back pain since a recent fall. She has a very involved daughter. Patient will return to [place] on discharge. Date Signed: 08/18/2017 12:30 PM Electronically Signed By:Radha Galvan LCSW
[2017-08-18] MEDS: APIXABAN 2.5 MG TAB PO SCH ×2 (13:31→22:06)
[2017-08-18] MEDS: DILTIAZEM CD 300 MG CAP PO SCH (14:26)
[2017-08-18] MEDS ORDERED: traMADol 50 MG TAB PO PRN (14:36)
[2017-08-18] MEDS: ATORVASTATIN CALCIUM 20 MG TAB PO SCH (16:50)
[2017-08-18] MEDS: VENLAFAXINE HCL 75 MG TAB PO SCH (16:50)
[2017-08-18] MEDS ORDERED: [UNRECOGNIZED DRUG - OTHER] TP SCH (21:00)
[2017-08-18] MEDS ORDERED: ISOPROPYL MYRISTATE TP SCH (21:00)
[2017-08-18] MEDS ORDERED: MINERAL OIL TP SCH (21:00)
[2017-08-18] MEDS: ACETAMINOPHEN 325 MG TAB PO SCH (22:06)
[2017-08-18] MEDS: DILTIAZEM CD 120 MG CAP PO SCH (22:07)
[2017-08-18] MEDS: TERBINAFINE 30 GM CRTUBE TP SCH (22:09)
[2017-08-19 04:37] LABS: CHOLESTEROL 204 mg/dL (140-220); CHOLESTEROL/HDL RATIO 2.55 RATIO (1.00-4.44); HIGH DENSITY LIPOPROTEIN 80 mg/dL (40-85); LOW DENSITY LIPOPROTEIN 112 mg/dL (80-100); NON-HIGH DENSITY LIPOPROTEIN 124 mg/dL (90-129); TRIGLYCERIDE 62 mg/dL (35-135); VERY LOW DENSITY LIPOPROTEINS 12 mg/dL (8-25)
[2017-08-19] MEDS ORDERED: DILTIAZEM HCL 300 MG PO SCH (09:00)
[2017-08-19] MEDS ORDERED: RIVASTIGMINE TD SCH (09:00)
[2017-08-19] MEDS: DILTIAZEM CD 300 MG CAP PO SCH (11:08)
[2017-08-19] MEDS: SENNOSIDES/DOCUSATE SODIUM TAB PO PRN (11:09)
[2017-08-19] MEDS: CHOLECALCIFEROL VIT D3 1,000 UNITS TAB PO SCH (11:11)
[2017-08-19] MEDS: ASPIRIN 81 MG CHEWABLE TAB PO SCH (11:12)
[2017-08-19] MEDS: ACETAMINOPHEN 325 MG TAB PO SCH ×3 (11:12→21:44)
[2017-08-19] MEDS: VENLAFAXINE HCL 75 MG TAB PO SCH ×2 (11:14→21:45)
[2017-08-19] MEDS: ATORVASTATIN CALCIUM 20 MG TAB PO SCH (11:15)
[2017-08-19] MEDS ORDERED: ACETAMINOPHEN 325 MG TAB PO PRN (13:14)
[2017-08-19] MEDS: APIXABAN 2.5 MG TAB PO SCH ×2 (13:28→21:45)
--- NOTE | 2017-08-19 14:19 | ASMTCMCOM ---
CM Note CM Note Notes: Notified Cathi ([phone]) at [place] (on license of [facility]) where pt lives and updated her that pt would not dc today. She will be having neuro consult. PT/OT recommending back home to [facility] vs SNF depending on level of care she can have at facility. Cathi reports that as long as pt can bear weight they can assist with any transfer. She said they are very small (10 beds) and therefore able to provide a good amount of assistance.Cathi reports that pt ambulates independantly at baseline but does receive assistance for showers, grooming, dressing. She does have a walker available to her at facility if needed. Facility administers her meds. Upon dc they will need orders/med list faxed to [phone]. Cathi said that Marge bhakta ([phone]) would most likely be able to transport pt home when dc'd from hospital. Anticipate dc to [facility] when med stable. If pt should need C, she has used [facility] in past and has worked w/Steph from [facility]. KIRA w/f. Date Signed: 08/19/2017 02:18 PM Electronically Signed By:Naya Rasheed RN
--- NOTE | 2017-08-19 15:04 | HOSPPROG ---
Hospitalist Progress Note Assessment/Plan: Hospitalist Progress Note Assessment/Plan: 87F PMH memory loss based on review of [facility] notes, likely permanent AF, here for episode of unresponsiveness with pinpoint pupils. Noted to have marked atrophy and microvascular ischemic changes on head CT but no acute stroke. Lives at memory care unit. First encounter, chart reviewed. D/W CM and neurosurgery. #. likely permanent AF: on Eliquis as outpt [id number] of likely 5 rate controlling agent on list from is listed as Dilt CD 300 daily which will be resumed today #. question stroke: imaging shows advanced senescent changes likely c/w her dementia # back pain L5 fx consult neurosurgery per therapy pt having significant pain with movement #. 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 LOS: possible D/C back to memory care unit tomorrow Subjective: Still having some pain. Confused. Objective: Vital Signs Temp Pulse Resp BP Pulse Ox 36.6 C 88 17 126/95 H 93 08/19/17 12:00 08/19/17 12:00 08/19/17 12:00 08/19/17 12:00 08/19/17 12:00 Laboratory Results 08/18/17 08:16 08/18/17 06:15 08/18/17 08/19/17 08/20/17 05:59 05:59 05:59 Intake Total 500 Output Total 50 900 Balance -50 -400 PT 15.9 SEC (12.0-15.0) H 08/17/17 12:45 INR 1.27 (0.83-1.16) H 08/17/17 12:45 - Physical Exam Constitutional: appears nourished, chronically ill appearing, uncomfortable Eyes: PERRL, anicteric sclera, EOMI Ears, Nose, Mouth, Throat: moist mucous membranes, hearing normal, ears appear normal Cardiovascular: regular rate and rhythym, No JVD, No edema Respiratory: no respiratory distress, no rales or rhonchi, reduced air movement Gastrointestinal: No tenderness, No ascites, No guarding Skin: warm, normal color, No erythema Musculoskeletal: no joint effusions, pain with ROM, generalized weakness Neurologic: No AAOx3 Psychiatric: not anxious, poor insight, poor judgement, poor memory ICD10 Worksheet Patient Problems: Problems Problem Status Onset Fall Acute Contusion, hip Acute Catatonia Acute Low back pain Acute Unable to ambulate Acute
[2017-08-19] MEDS: DILTIAZEM CD 120 MG CAP PO SCH (21:43)
[2017-08-19] MEDS: TERBINAFINE 30 GM CRTUBE TP SCH (22:16)
--- NOTE | 2017-08-20 00:51 | GCON ---
[f rep st] CONSULTATION CONSULTATION HISTORY AND PHYSICAL CHIEF COMPLAINT: L5 compression fracture, L4 superior endplate fracture. HISTORY OF PRESENT ILLNESS: Patient is an 87-year-old female with a history of atrial fibrillation, was on Eliquis, who came into the emergency department as a stroke alert. She was taking a shower. Suddenly became unresponsive. She was noted to have pinpoint pupils at the time. She had a stroke alert showing no acute stroke. She was noted to have marked atrophy as well as microvascular ischemic disease on her scan. She had a CTA of the head and neck showing stenosis. There was left subclavian calcified plaque of the left vertebral artery. In her workup which included a CT scan, it was noted that she had an interval compression fracture of L5 seen on the new imaging and there was a possibility of an endplate fracture of L4 as well. We were consulted from Neurosurgery. When I saw her in the room, she was in the bathroom. She was able to walk from the bathroom to her chair without significant pain and had no pain with fist percussion nor any pain with standing or sitting. She denies any symptoms in her legs such as numbness, tingling or weakness. No upper extremity complaints. She has no loss of bowel or bladder control. She denies any fevers or chills, cough nausea vomiting or diarrhea. No urinary symptoms such as urgency, frequency, dysuria. No incontinence. REVIEW OF SYSTEMS: Complete Review of Systems conducted and negative except as noted in HPI. PAST MEDICAL HISTORY: Significant for the following: Atrial fibrillation on Eliquis, normocephalic anemia, bilateral mastectomies, , breast cancer history. PAST SURGICAL HISTORY: See above. MEDICATIONS: Please see med rec form. ALLERGIES: To penicillin and mercury. IMMUNIZATIONS: Reported up to date. 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 She is . She lives alone. She quit smoking. She drinks occasionally. PHYSICAL EXAMINATION: GENERAL: This is an awake, alert, oriented female in no acute distress. She is able to follow commands appropriately. VITAL SIGNS: Most recent blood pressure 126/95, with a MAP of 105, heart rate of 88, 17 respirations, 93% on room air, temperature 36.6. HEENT: Head is normocephalic , atraumatic. Pupils are equal, round, reactive to light. EOMIs intact. Full visual mora by confrontation. Ears are patent. Nose is patent. NECK: Soft and supple. No midline tenderness. Full range of motion in flexion, extension , lateral bending, and rotation. RESPIRATORY and CARDIAC: Deferred. ABDOMEN: Soft, nontender. No peritoneal signs. and RECTAL: Deferred. NEURO: Patient is awake, alert, oriented to name, place, location. Memory is intact to assistant business manager and short term. Able to recall events this a.m. Cranial nerves 2- 12 are grossly intact. Motor: Patient has 5/5 strength in all muscle groups of bilateral upper and lower extremities to include deltoids, biceps, triceps, brachioradialis, wrist flexors, extensors, doughmaker intrinsic, fingers, iliopsoas, quadriceps, hamstring, plantar flexion, dorsiflexion, EHL testing. Sensation grossly intact to light touch throughout all dermatome distributions upper and lower extremities. Negative straight leg raise. Negative MARCUS test. Reflexes of biceps, triceps, brachioradialis, knee jerks, and ankle jerk are 2+/ 4. Toes are downgoing bilaterally. Aden's negative. Babinski negative. No clonus. Patient has no midline cervical, thoracic or lumbar tenderness with fist percussion on exam. DIAGNOSTIC TESTING: Laboratory tests: White count of 8.22 with an H and H of 12.9 and 38.8, with a platelet count that is that to be completed, but most recent on 08/17/2017, platelet count of 209. Coags on 08/17/2017, shows a PT of 15.9, INR of 1.27, PTT of 28.6. Chemistry on 08/18/2017, shows a potassium 141, potassium 3.3, chloride 105, CO2 23, creatinine 0.6, BUN 14, and a glucose of 85. MEDICAL DECISION MAKING: DIAGNOSTIC STUDIES: Imaging: CT scan of the head obtained shows stable uwjyivci-nx-cgrnwb atrophy. No hemorrhage, mass effect or definite acute peripheral infarct. Stable qvbkotoq-zq-nsoetc microvascular ischemic disease was noted. Head CTA obtained 08/17/2017, shows stenosis at the origin of left subclavian artery. There is calcified plaque in the origin small caliber left vertebral artery at the aortic arch. Calcified plaque at the origin of the right vertebral artery with stenosis. Moderate calcified plaque in the right carotid bulb. Cmmkkvbj-pj-kcttsl calcified plaque in the left carotid bulb. Severe narrowing of the distal left vertebral artery below the basilar artery without evidence of associated plaque. Lumbar spine x-rays obtained 08/17/2017, shows L5 compression fracture likely new since 05/26/2017. Inferior endplate deformity of L4. Mild retrolisthesis of L2-3 and anterolisthesis of L3-4. Followup CT scan obtained 08/18/2017, shows stable esxiulre-rr-ozrpmu atrophy. No hemorrhage or mass effect noted. IMPRESSION: 1. Stroke alert came into the emergency department being evaluated and workup per Internal Medicine. 2. Interval compression fracture to L5 with questionable inferior endplate fracture of L4. Patient without back pain. PLAN/DISCUSSION: Patient is an 87-year-old female who, based on my exam this afternoon, has no pain in her back. She had no pain with fist percussion. She had no pain with movement. She was able to walk comfortably from the bathroom to her chair. I will speak with Dr. Herzog Regarding this. He will see and evaluate her shortly. Will review through the images and determine whether further imaging is needed. I recommend no brace at this time pending repeat evaluation with Dr. Herzog. All questions and concerns were answered. Patient understands and agrees. NEUROSURGERY ATTENDING NOTE I met with the patient and her daughter. She has no pain and a previous history of a spine fracture. There is no indication for any further imaging or intervention. Both of them are in agreement. We will sign off and follow-up PRN. /[id number]/MODL MTDD
[2017-08-20] MEDS: ACETAMINOPHEN 325 MG TAB PO SCH ×2 (06:09→15:46)
[2017-08-20 07:30] VITALS: RESP 16; TEMP 97.6
[2017-08-20] MEDS: CHOLECALCIFEROL VIT D3 1,000 UNITS TAB PO SCH (07:30)
[2017-08-20] MEDS: DILTIAZEM CD 300 MG CAP PO SCH (07:30)
[2017-08-20] MEDS: SENNOSIDES/DOCUSATE SODIUM TAB PO PRN (07:30)
[2017-08-20] MEDS: APIXABAN 2.5 MG TAB PO SCH (07:31)
[2017-08-20] MEDS: ASPIRIN 81 MG CHEWABLE TAB PO SCH (07:31)
[2017-08-20] MEDS: ATORVASTATIN CALCIUM 20 MG TAB PO SCH (07:31)
[2017-08-20] MEDS: VENLAFAXINE HCL 75 MG TAB PO SCH (07:31)
[2017-08-20 11:30] VITALS: BP 135/91; PULSE 86; O2SAT 95
--- NOTE | 2017-08-20 14:31 | HOSPPROG ---
Hospitalist Progress Note Assessment/Plan: Patient is an 87-year-old female with a history of atrial fibrillation who came in as a stroke alert. She had a CT of the head and neck showing stenosis. When evaluated by the hospital she was alert and conversant and responsive. She lives at a Memory Care Unit. 1st encounter, chart reviewed #.Encephalopathy 2/2 unknown cause Unable to determine (no explanation for clinical findings) symptoms could of been exacerbated from acute L5 fx and with her dementia caused the acute encephalopathy #. likely permanent AF: on Eliquis as outpt [id number] on diltiazem #. significant dementia oriented only to herself and who her daughter is #. concern for stroke: imaging shows advanced senescent changes likely c/w her dementia # back pain L5 fx no pain today #. 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 Plan: dc today/ I spoke with her daughter, Eva, about her carotid disease/ she doesn't want any further interventions/ her mom has significant dementia/ will dc her on asa and statin therapy/ have her f/u with Dr Wu or one of the neurologist if the family wants any further w/y Subjective: Hilton has no complaints Objective: Vital Signs Temp Pulse Resp BP Pulse Ox 36.4 C 86 16 135/91 H 95 08/20/17 11:28 08/20/17 11:28 08/20/17 11:28 08/20/17 11:28 08/20/17 11:28 Laboratory Results 08/18/17 08:16 08/18/17 06:15 08/19/17 08/20/17 08/21/17 05:59 05:59 05:59 Intake Total 500 200 Output Total 900 200 Balance -400 0 PT 15.9 SEC (12.0-15.0) H 08/17/17 12:45 INR 1.27 (0.83-1.16) H 08/17/17 12:45 - Physical Exam Constitutional: no apparent distress, other (thin) Eyes: PERRL Ears, Nose, Mouth, Throat: hearing normal Cardiovascular: irregularly irregular, No tachycardia Respiratory: no respiratory distress Gastrointestinal: normoactive bowel sounds Skin: warm Musculoskeletal: generalized weakness Psychiatric: encephalopathic, poor judgement, poor memory ICD10 Worksheet Patient Problems: Problems Problem Status Onset Catatonia Acute Low back pain Acute Unable to ambulate Acute Contusion, hip Acute Fall Acute
--- NOTE | 2017-08-20 15:42 | PDIAF ---
- Diagnosis Diagnosis: acute encephalopathy on dementia/ L5 compression fx Code Status: Full Code - Medication Management Discharge Medications: Medications to Continue on Transfer Acetaminophen [Tylenol 325mg (*)] 650 mg PO Q4 PRN 08/18/17 [Last Taken Unknown] Acetaminophen [Tylenol 325mg (*)] 650 mg PO TID@07,12,21 08/18/17 [Last Taken Unknown] Apixaban [Eliquis] 2.5 mg PO BID 08/18/17 [Last Taken Unknown] Aspirin [Aspirin 325 mg (*)] 325 mg PO DAILY PRN 08/18/17 [Last Taken Unknown] Cholecalciferol Vit D3 [Vitamin D3 (*)] 2,000 units PO DAILY 08/18/17 [Last Taken Unknown] Diltiazem HCl [Diltiazem 24Hr ER] 300 mg PO DAILY 08/18/17 [Last Taken Unknown] Mineral Oil/I-Prop Myr/Water [Hydrocerin Lotion] 1 dayron TP HS 08/18/17 [Last Taken Unknown] Rivastigmine [Exelon 9.5mg/24 hrs] 1 each TD DAILY 08/18/17 [Last Taken Unknown] Sennosides/Docusate Sodium [SENEXON-S TABLET] 1 each PO BID PRN 08/18/17 [Last Taken Unknown] Terbinafine HCl [LamISIL AT Cream (*)] 1 dayron TP HS 08/18/17 [Last Taken Unknown] Venlafaxine HCl [Venlafaxine 75MG (*)] 75 mg PO BIDMEAL 08/18/17 [Last Taken Unknown] Aspirin [Aspirin 81mg (*)] 81 mg PO DAILY #0 tab.chew 08/20/17 [Last Taken Unknown] Atorvastatin Calcium [Lipitor 20 mg (*)] 20 mg PO DAILY #30 tab 08/20/17 [Last Taken Unknown] Discharge Medications: Refer to the Discharge Home Medication list for PRN reason. - Orders Services needed: Physical Therapy, Occupational Therapy Diet Recommendation: no restrictions on diet Diet Texture: Regular Texture Diet Additional: statin therapy (Lipitor) has been added to her home regimen to help with plague on her carotids. baby aspirin has been added in addition. she will need her liver enzymes checked in 6 weeks. if she develops worsening pain and aches, it could be from the statin therapy and this should be stopped and she should see her PCP. Lipitor prescription was filled her at [facility] for daughter to take to [facility] - Follow Up Care Current Providers and Referrals: Kobi Muniz DO [Doctor of Osteopathy] - As per Instructions
--- NOTE | 2017-08-20 16:49 | ASMTCMCOM ---
CM Note CM Note Notes: D/w CHIEF INVESTMENT OFFICER, final orders faxed. Pt waiting for rx from [facility] bedside service, Cathi at [facility] confirmed receipt of dc orders and RN called report. Date Signed: 08/20/2017 04:49 PM Electronically Signed By:Carolyn Das RN
--- NOTE | 2017-08-20 16:51 | ASDISCHSUM ---
Discharge Information Plan Status:Assisted Living Medically Cleared to Leave: Discharge Date:08/20/2017 04:38 PM CM D/C Disposition: ADT D/C Disposition:Assisted Facility Projected Discharge Date:08/20/2017 04:38 PM Transportation at D/C:Family Discharge Delay Reason: Follow-Up Date:08/20/2017 04:38 PM Discharge Slot: Final Diagnosis: Placement Information Patient Contact Information Contact Name:BERRY Relationship:Daughter Address: City: [facility] Phone: State/Zip Code: Email: Financial Information Financial Class: Primary Plan Desc:MEDICARE INPATIENT Primary Plan Number:[id number] Secondary Plan Desc:[facility] Secondary Plan Number:[id number] Assessment Information [facility] CM Progress Note CM Note CM Note Notes: 87 year old female who was admitted after a stroke alertand encephalopathy. She has a hx of Afib, breast CA, anemia. Patient lives at [facility] in [place]. Spoke to a caregiver who reports that patient is at her baseline mentally but has been complaining about hip and back pain since a recent fall. She has a very involved daughter. Patient will return to [facility] on discharge. Date Signed: 08/18/2017 12:30 PM Electronically Signed By:Radha Galavn LCSW [facility] CM Progress Note CM Note CM Note Notes: Notified Cathi ([phone]) at [facility] ([facility]) where pt lives and updated her that pt would not dc today. She will be having neuro consult. PT/OT recommending back home to [facility] vs [facility] depending on level of care she can have at facility. Cathi reports that as long as pt can bear weight they can assist with any transfer. She said they are very small (10 beds) and therefore able to provide a good amount of assistance.Cathi reports that pt ambulates independantly at baseline but does receive assistance for showers, grooming, dressing. She does have a walker available to her at facility if needed. Facility administers her meds. Upon dc they will need orders/med list faxed to [phone]. Cathi said that Marge bhakta ([phone]) would most likely be able to transport pt home when dc'd from hospital. Anticipate dc to [facility] when med stable. If pt should need [facility], she has used [facility] in past and has worked w/Steph from [facility]. CM w/f. Date Signed: 08/19/2017 02:18 PM Electronically Signed By:Naya Rasheed RN [facility] CM Progress Note CM Note CM Note Notes: D/w BOW STRING MAKER, final orders faxed. Pt waiting for rx from [facility] service, Cathi at [facility] confirmed receipt of dc orders and RN called report. Date Signed: 08/20/2017 04:49 PM Electronically Signed By:Carolyn Das RN Intervention Information Intervention Type:*IM-Signed Date of Service:08/20/2017 04:16 PM Patient Type:Inpatient Staff Member:Zoe Hamm Hours: Discipline: Severity: Comment:
--- NOTE | 2017-08-20 18:50 | GDS ---
[f rep st] DISCHARGE SUMMARY DISCHARGE DIAGNOSES: 1. Acute encephalopathy on chronic dementia. 2. Likely permanent atrial fibrillation. 3. Significant dementia. 4. Initial concern for stroke. 5. Back pain with L5 compression fracture. 6. Peripheral vascular disease. 7. Severe carotid disease and vertebral artery disease. HISTORY OF PRESENT ILLNESS: Briefly, the patient is an 87-year-old female with history of atrial fibrillation on Eliquis came the ER as a stroke alert. She was in her usual state of health, taking a shower, and then suddenly became unresponsive. She was noted to have pinpoint pupils. She had a CTA of the head and neck showing stenosis. There was a left subclavian calcified plaque of the left vertebral artery, about 75%-85%. Moderate to severe calcified left carotid bulb stenosis measuring about 75%-85%. There was a little narrowing at the distal left vertebral artery. Tox screen was sent and was negative. Within an hour she was responsive and talking. She was seen by her daughter who said she was at her baseline. The hospitalist admitting noted she was conversant, alert, and responsive, although she was very confused and having a hard time answering questions accurately. In addition, she had a lumbar spine x -ray, which showed vertebral plana compression deformity at L5. Also an inferior endplate deformity at L4, facet arthrosis. CONSULTATIONS: Wyatt Russell PA-C with [facility]. HOSPITAL COURSE: 1. Acute encephalopathy. Unclear the cause of this. It could have been exacerbated by the L5 compression fracture. She has significant dementia. 2. Likely permanent atrial fibrillation. Reviewed her air sampling and monitoring. She is in atrial fibrillation. She has a CHADS2 VASC score of 5. She is on Eliquis and diltiazem for rate control. 3. Significant dementia. She is only oriented to herself. She is not able to follow through when talking with her about any subject in particular. She knows who her daughter is. 4. Concern for a stroke. Her imaging shows advanced senescent changes, likely consistent with her dementia. 5. Back pain. She has an L5 fracture. She is not complaining of pain. 6. Peripheral vascular disease. The CT noted that she has severe carotid disease and vertebral artery disease. She is on aspirin and statin therapy. I spoke with her daughterMarge. She does not want any further interventions because of her advanced dementia. DISCHARGE CONDITION: Stable. Blood pressure is 134/91, heart rate is 86, respiratory rate is 16, O2 sat on room air 95%, temperature is 36.4 Celsius. MEDICATIONS AT DISCHARGE: Please see the EMR. DISCHARGE INSTRUCTIONS: 1. Follow up with Dr. Muniz for further evaluation in regard to her encephalopathy. 2. Statin therapy has been added to her home regimen. She will need to get liver enzymes checked in 6 weeks. If she develops worsening body aches and pain , it could be from the statin therapy. This should be stopped at that time, and she should follow up with her primary care provider. 3. Baby aspirin has also been added to her home regimen. Greater than 30 minutes discharging and coordinating her care. /[id number]/MODL MTDD
== END 2017-08-20 16:38 | DRG 71 ==
LOC: EDUNIT# → F3N 16:42 → OBSVTOIN 21:54
PROVIDERS: ADMIT Internal Medicine; ATTEND Internal Medicine
DX: G93.49 Other encephalopathy (principal); S32.050A Wedge compression fracture of fifth lumbar vertebra, initial encounter for closed fracture; F03.90 Unspecified dementia, unspecified severity, without behavioral disturbance, psychotic disturbance, mood disturbance, and anxiety; I48.2 Chronic atrial fibrillation; I73.9 Peripheral vascular disease, unspecified; Z79.01 Long term (current) use of anticoagulants; Z79.82 Long term (current) use of aspirin; Z85.3 Personal history of malignant neoplasm of breast; I67.2 Cerebral atherosclerosis; I65.23 Occlusion and stenosis of bilateral carotid arteries
CPT/HCPCS: 80307; 82947-QW; 97116-GP; 97162-GP; 97166-GO; 97535-GO; G0480; G8978-GP-CL; G8979-GP-CJ; G8987-GO-CL; G8988-GO-CJ; Q9967

== ENCOUNTER 2017-08-28 11:32 | Inpatient (IN) | payer OTHER ==
--- NOTE | 2017-08-28 11:47 | EDPHY ---
H & P Time Seen by Provider: 08/28/17 11:38 HPI/ROS: CHIEF COMPLAINT: Fall HISTORY OF PRESENT ILLNESS: The patient is an 87-year-old female who comes to the emergency department by EMS is a limited trauma +. She stumbled and fell and hit her head on the ground. She has a small abrasion to the right scalp. She denies loss of consciousness. She denies headache. She denies neck pain. She takes Eliquis for history of atrial fibrillation. She denies pain or injury. She does have baseline dementia. She is also currently being treated with acyclovir for shingles rash on her right gluteus. REVIEW OF SYSTEMS: Constitutional: denies: chills, fever, recent illness, recent injury EENTM: denies: blurred vision, double vision, nose congestion Respiratory: denies: cough, shortness of breath Cardiac: denies: chest pain, irregular heart rate, lightheadedness, palpitations Gastrointestinal/Abdominal: denies: abdominal pain, diarrhea, nausea, vomiting, blood streaked stools Genitourinary: denies: dysuria, frequency, hematuria, pain Musculoskeletal: denies: joint pain, muscle pain Skin: denies: lesions, rash, jaundice, bruising Neurological: denies: headache, numbness, paresthesia, tingling, dizziness, weakness Hematologic/Lymphatic: denies: blood clots, easy bleeding, easy bruising Immunologic/allergic: denies: HIV/AIDS, transplant EXAM: GENERAL: Well-appearing, well-nourished and in no acute distress. HEAD: Minimal abrasion to right scalp , normocephalic. EYES: Pupils equal round and reactive to light, extraocular movements intact, sclera anicteric, conjunctiva are normal. ENT: TMs normal, nares patent, oropharynx clear without exudates. Moist mucous membranes. NECK: Normal range of motion, supple without lymphadenopathy or JVD. LUNGS: Breath sounds clear to auscultation bilaterally and equal. No wheezes rales or rhonchi. HEART: Regular rate and rhythm without murmurs, rubs or gallops. ABDOMEN: Soft, nontender, normoactive bowel sounds. No guarding, no rebound. No masses appreciated. BACK: No CVA tenderness, no spinal tenderness, step-offs or deformities EXTREMITIES: Normal range of motion, no pitting or edema. No clubbing or cyanosis. NEUROLOGICAL: Cranial nerves II through XII grossly intact. Normal speech, normal gait. 5/5 strength, normal movement in all extremities, normal sensation PSYCH: Normal mood, normal affect. SKIN: Small abrasion to right scalp , healing lesions to right gluteus. Source: Patient Exam Limitations: No limitations - Medical/Surgical History Hx Asthma: No Hx Chronic Respiratory Disease: No Hx Diabetes: No Hx Cardiac Disease: No Hx Renal Disease: No Hx Cirrhosis: No Hx Alcoholism: No Hx HIV/AIDS: No Hx Splenectomy or Spleen Trauma: No Other PMH: dementia, atrial fibrillation, double mastectomy,Shingles - Family History Significant Family History: No pertinent family hx - Social History Smoking Status: Unknown if ever smoked Alcohol Use: Sober Drug Use: None Constitutional: Initial Vital Signs Blood Pressure 156/56 H 08/28/17 11:55 Allergies/Adverse Reactions: Penicillins Allergy (Verified 06/14/17 11:57) Rash MERCURY Allergy (Uncoded 03/15/12 12:56) Rash Home Medications: Medication Instructions Recorded Acetaminophen [Tylenol 325mg (*)] 650 mg PO TID@,, PRN 08/18/17 Apixaban [Eliquis] 2.5 mg PO BID@08/18/17 Cholecalciferol Vit D3 [Vitamin D3 2,000 units PO DAILY@08/18/17 (*)] Diltiazem HCl [Diltiazem 24Hr ER] 300 mg PO DAILY@08/18/17 Mineral Oil/I-Prop Myr/Water 1 dayron [facility] 08/18/17 [Hydrocerin Lotion] Rivastigmine [Exelon 9.5mg/24 hrs] 1 each TD DAILY@08/18/17 Sennosides/Docusate Sodium 1 each PO BID PRN 08/18/17 [SENEXON-S TABLET] Terbinafine HCl [LamISIL AT Cream 1 dayron TP 08/18/17 (*)] Venlafaxine HCl [Venlafaxine 75MG 75 mg PO BID@,08/18/17 (*)] Acyclovir [Zovirax 400 mg (*)] 400 mg PO QID@,,,08/28/17 Aspirin [Aspirin 81mg (*)] 81 mg PO DAILY@08/28/17 Atorvastatin Calcium [Lipitor 20 20 mg PO DAILY@08/28/17 mg (*)] Diclofenac Sodium 1% [Voltaren Gel 4 gm TP BID@ PRN 08/28/17 (*)] Sulfamethox/Tmp 800/160 mg 1 tab PO BID@08/28/17 [Bactrim Ds] Medical Decision Making - Diagnostics Imaging: Discussed imaging studies w/ resort keeper Radiologist ED Course/Re-evaluation: 12:26 p[address]m. we discussed the CT results. Patient is reassured. She has no complaints currently. Her daughter is here and will drive her back. She is tolerating food. 12:40 p.m. the patient tried to stand up to go home and had significant right hip pain. We will x-ray her hip. 1:30 p.m. the patient has a right femoral neck fracture seen on x-ray. She does not have any pain while lying in bed. Daughter is here and states she is unsure about her surgical candidacy because of history of heart disease and carotid artery stenosis and dementia. Will admit to the medical service with orthopedic consultation. 1:40 p.m. I discussed the case with Dr. linton who accepted the patient. I have paged orthopedics but have not yet received a call back I spoke with Dr. Baker who spoke with the patient daughter over the phone. They would like to try and operate this evening. Differential Diagnosis: Partial list of the Differential diagnosis considered include but were not limited to; head injury, hemorrhage and although unlikely based on the history and physical exam, I also considered fracture, cervical spine injury. I discussed these differential diagnoses and the plan with the patient and family as well as the usual and expected course. The family understands that the diagnosis is provisional and that in medicine we are not always correct and that further workup is often warranted. Usual and customary warnings were given. All of the family's questions were answered. The patient was instructed to return to the emergency department should the symptoms at all worsen or return, otherwise to followup with the physician as we discussed. - Data Points Laboratory Results: Laboratory Results 08/28/17 13:32 08/28/17 13:32 Medications Given: Acyclovir (Acyclovir) 400 mg PO QID@, IAN Stop: 09/27/17 16:59 Last Admin: 08/29/17 15:59 Dose: 400 mg Atorvastatin Calcium (Lipitor) 20 mg PO DAILY@08 [facility] Stop: 02/25/18 07:59 Last Admin: 08/29/17 09:09 Dose: 20 mg Cholecalciferol (Vitamin D) 2,000 units PO DAILY@0800 [facility] Stop: 02/25/18 07:59 Last Admin: 08/29/17 09:07 Dose: 2,000 units Diltiazem HCl (Cardizem Er Q24hr) 360 mg PO DAILY IAN Stop: 02/25/18 08:59 Last Admin: 08/29/17 09:07 Dose: 360 mg Miscellaneous Medication (Rivastigmine [Exelon 9.5mg/24 Hrs]) 1 each TD DAILY@ 08 [facility] Stop: 02/25/18 07:59 Last Admin: 08/29/17 09:10 Dose: Not Given Multi-Ingredient Cream (Eucerin Lotion) 1 dayron TP [facility] Stop: 02/24/18 20:59 Last Admin: 08/29/17 00:38 Dose: Not Given Oxycodone HCl (Oxycodone Ir) 2.5 - 5 mg PO Q4 PRN PRN Reason: Pain, Severe Able to Take PO Stop: 09/07/17 15:12 Last Admin: 08/29/17 15:58 Dose: 5 mg Senna/Docusate Sodium (Senokot-S) 1 tab PO BID [facility] Stop: 02/24/18 15:29 Last Admin: 08/29/17 09:08 Dose: 1 tab Terbinafine HCl (Lamisil At) 1 dayron TP [facility] Stop: 09/27/17 20:59 Last Admin: 08/29/17 00:38 Dose: Not Given Trimethoprim/Sulfamethoxazole (Bactrim Ds) 1 ea PO BID@ [facility] PRN Reason: Protocol Stop: 08/31/17 08:01 Last Admin: 08/29/17 15:58 Dose: 1 ea Venlafaxine HCl (Venlafaxine Hcl) 75 mg PO BID@, [facility] Stop: 02/24/18 16:59 Last Admin: 08/29/17 16:04 Dose: 75 mg Discontinued Medications Diltiazem HCl (Cardizem Er Q24hr) 300 mg PO DAILY@0800 [facility] Stop: 02/25/18 07:59 Last Admin: 08/29/17 09:14 Dose: Not Given Hydromorphone HCl (Dilaudid) 0.5 mg IVP ONCE ONE Stop: 08/28/17 15:27 Last Admin: 08/28/17 15:32 Dose: 0.5 mg Potassium Chloride/Dextrose/Sod Cl (D5w 1/2 Ns W/ 20 Kcl/L) 1,000 mls @ 100 mls /hr IV CONT IAN Stop: 02/24/18 15:14 Last Admin: 08/28/17 15:32 Dose: 1,000 mls Departure - Departure Disposition: [facility] Inpatient Acute Clinical Impression: Fall Qualifiers: Encounter type: initial encounter Qualified Code(s): W19.XXXA - Unspecified fall, initial encounter Fracture of hip, right, closed Qualifiers: Encounter type: initial encounter Qualified Code(s): S72.001A - Fracture of unspecified part of neck of right femur, initial encounter for closed fracture Condition: Fair
[2017-08-28 13:44] LABS: ANION GAP 16 mEq/L (8-16); CARBON DIOXIDE 24 mEq/l (22-31); CHLORIDE 101 mEq/L (97-110); GLOMERULAR FILTRATION RATE 53; GLUCOSE 100 mg/dL (70-100); POTASSIUM 3.7 mEq/L (3.5-5.2); SODIUM 141 mEq/L (134-144)
[2017-08-28 13:54] LABS: INR 1.39 (0.83-1.16)
[2017-08-28 13:55] LABS: APTT 25.8 SEC (23.0-38.0)
[2017-08-28 14:04] LABS: % IMMATURE GRANULYOCYTES 0.7 % (0.0-1.1); ABSOLUTE IMMATURE GRANULOCYTES 0.07 10^3/uL (0.00-0.10); ADD DIFF? NO; ADD MORPH? NO; ADD SCAN? NO; ATYPICAL LYMPHOCYTE FLAG 30 (0-99); FRAGMENT RBC FLAG 0 (0-99); HEMATOCRIT 43.7 % (38.0-47.0); HEMOGLOBIN 14.5 g/dL (12.6-16.3); LEFT SHIFT FLG 0 (0-99); LIPEMIA HEMOLYSIS FLAG 80 (0-99); MEAN CELL HEMOGLOBIN 30.2 pg (27.9-34.1); MEAN CELL HEMOGLOBIN CONCENTR. 33.2 g/dL (32.4-36.7); PLATELET CLUMPS FLAG 10 (0-99); RED CELL DISTRIBUTION WIDTH 14.7 % (11.5-15.2)
[2017-08-28] MEDS ORDERED: ONDANSETRON 4 MG/2 ML VIAL IVP PRN (15:13)
[2017-08-28] MEDS ORDERED: ONDANSETRON DISINTEGRATING 4 MG TAB PO PRN (15:13)
[2017-08-28] MEDS ORDERED: D5W 1/2 NS W/ 20 KCl/L 1,000 ML IV SCH (15:15)
[2017-08-28] MEDS ORDERED: HYDROmorphONE/DILAUDID 1 MG/ML INJ IVP ONE (15:26)
[2017-08-28] MEDS ORDERED: HYDROmorphONE/DILAUDID 1 MG/ML INJ ONE (15:29)
--- NOTE | 2017-08-28 16:06 | PDGENHP ---
History and Physical - Chief Complaint Acute hip pain - History of Present Illness Primary Cards: Dr. Álvarez Primary ortho: Dr. Bwoser Primary neuro: Dr. Muniz HPI: 87 yo F p/w acute pain characterized as sharp, located in the R hip, associated w/ a scalp abrasion and a mechanical fall experienced on the date of presentation, w/ progressive onset of pain, of ongoing duration, rendering patient unable to ambulate out of the emergency department. She had otherwise been feeling well prior to her fall. That said, her daughter has noted approx 1 week of "wobbly" gait, since her discharge from [facility]. History Information - Allergies/Home Medication List Allergies/Adverse Reactions: Penicillins Allergy (Verified 06/14/17 11:57) Rash MERCURY Allergy (Uncoded 03/15/12 12:56) Rash Home Medications: Acetaminophen [Tylenol 325mg (*)] 650 mg PO TID@,, PRN 08/18/17 [Last Taken Unknown] Apixaban [Eliquis] 2.5 mg PO BID@08/18/17 [Last Taken Unknown] Cholecalciferol Vit D3 [Vitamin D3 (*)] 2,000 units PO DAILY@08/18/17 [Last Taken Unknown] Diltiazem HCl [Diltiazem 24Hr ER] 300 mg PO DAILY@08/18/17 [Last Taken Unknown] Mineral Oil/I-Prop Myr/Water [Hydrocerin Lotion] 1 dayron TP 08/18/17 [Last Taken Unknown] Rivastigmine [Exelon 9.5mg/24 hrs] 1 each TD DAILY@08/18/17 [Last Taken Unknown] Sennosides/Docusate Sodium [SENEXON-S TABLET] 1 each PO BID PRN 08/18/17 [Last Taken Unknown] Terbinafine HCl [LamISIL AT Cream (*)] 1 dayron TP HS 08/18/17 [Last Taken Unknown] Venlafaxine HCl [Venlafaxine 75MG (*)] 75 mg PO BID@,08/18/17 [Last Taken Unknown] Acyclovir [Zovirax 400 mg (*)] 400 mg PO QID@,,,08/28/17 [Last Taken Unknown] Aspirin [Aspirin 81mg (*)] 81 mg PO DAILY@08/28/17 [Last Taken Unknown] Atorvastatin Calcium [Lipitor 20 mg (*)] 20 mg PO DAILY@08/28/17 [Last Taken Unknown] Diclofenac Sodium 1% [Voltaren Gel (*)] 4 gm TP BID@ PRN 08/28/17 [Last Taken Unknown] Sulfamethox/Tmp 800/160 mg [Bactrim Ds] 1 tab PO BID@08/28/17 [Last Taken Unknown] I have personally reviewed and updated: family history, medical history, social history, surgical history - Past Medical History atrial fibrillation (permanent), dementia (severe, oriented to person only, able to follow commands) Additional medical history: CKD Stage III (baseline Cr 1.0). Carotid stenosis ( L 75-85%, Veterbral artery stenosis. VZV on Acyclovir. RBBB. Breast cancer - Surgical History Additional surgical history: Bilateral mastectomy. - Family History Additional family history: No recent sick family contacts - Social History Smoking Status: Unknown if ever smoked Alcohol Use: Sober Drug Use: None Additional social history: Receives [facility] at [facility] Review of Systems Review of Systems: ROS: 10pt was reviewed & negative except for what was stated in HPI & below Muscolosketal: Reports: joint pain (R hip) Physical Exam Physical Exam: Temp Pulse Resp BP Pulse Ox 80 16 127/68 H 96 08/28/17 14:56 08/28/17 14:56 08/28/17 14:56 08/28/17 14:56 Constitutional: no apparent distress, appears nourished, not in pain, other ( aged appearing) Eyes: PERRL, anicteric sclera, EOMI Ears, Nose, Mouth, Throat: hearing normal, dry mucous membranes Cardiovascular: irregularly irregular, tachycardia (intermittently), No systolic murmur, No edema Respiratory: no respiratory distress, no rales or rhonchi, clear to auscultation Gastrointestinal: normoactive bowel sounds, soft, non-tender abdomen, no palpable masses Skin: other (no rash over lateral R hip, no ecchymoses) Musculoskeletal: other (mild tenderness lateral R hip, limited flexion R hip 2/ 2 pain/weakness) Neurologic: other (AAOx1 (person only), sensation intact bilat), No facial droop Psychiatric: encephalopathic, other (follows commands, cooperative, unable to sensically answer most questions) Lab Data & Imaging Review 08/28/17 13:32 08/28/17 13:32 WBC 9.53 10^3/uL (3.80-9.50) H 08/28/17 13:32 RBC 4.80 10^6/uL (4.18-5.33) 08/28/17 13:32 Hgb 14.5 g/dL (12.6-16.3) 08/28/17 13:32 Hct 43.7 % (38.0-47.0) 08/28/17 13:32 MCV 91.0 fL (81.5-99.8) 08/28/17 13:32 MCH 30.2 pg (27.9-34.1) 08/28/17 13:32 MCHC 33.2 g/dL (32.4-36.7) 08/28/17 13:32 RDW 14.7 % (11.5-15.2) 08/28/17 13:32 Plt Count TNP 08/28/17 13:32 MPV TNP 08/28/17 13:32 Neut % (Auto) 75.2 % (39.3-74.2) H 08/28/17 13:32 Lymph % (Auto) 16.8 % (15.0-45.0) 08/28/17 13:32 [place] % (Auto) 6.7 % (4.5-13.0) 08/28/17 13:32 Eos % (Auto) 0.3 % (0.6-7.6) L 08/28/17 13:32 Baso % (Auto) 0.3 % (0.3-1.7) 08/28/17 13:32 Nucleat RBC Rel Count 0.0 % (0.0-0.2) 08/28/17 13:32 Absolute Neuts (auto) 7.16 10^3/uL (1.70-6.50) H 08/28/17 13:32 Absolute Lymphs (auto) 1.60 10^3/uL (1.00-3.00) 08/28/17 13:32 Absolute Monos (auto) 0.64 10^3/uL (0.30-0.80) 08/28/17 13:32 Absolute Eos (auto) 0.03 10^3/uL (0.03-0.40) 08/28/17 13:32 Absolute Basos (auto) 0.03 10^3/uL (0.02-0.10) 08/28/17 13:32 Absolute Nucleated RBC 0.00 10^3/uL (0-0.01) 08/28/17 13:32 Immature Gran % 0.7 % (0.0-1.1) 08/28/17 13:32 Immature Gran # 0.07 10^3/uL (0.00-0.10) 08/28/17 13:32 PT 17.0 SEC (12.0-15.0) H 08/28/17 13:32 INR 1.39 (0.83-1.16) H 08/28/17 13:32 APTT 25.8 SEC (23.0-38.0) 08/28/17 13:32 Sodium 141 mEq/L (134-144) 08/28/17 13:32 Potassium 3.7 mEq/L (3.5-5.2) 08/28/17 13:32 Chloride 101 mEq/L (97-110) 08/28/17 13:32 Carbon Dioxide 24 mEq/l (22-31) 08/28/17 13:32 Anion Gap 16 mEq/L (8-16) 08/28/17 13:32 BUN 18 mg/dL (7-23) 08/28/17 13:32 Creatinine 1.0 mg/dL (0.6-1.0) 08/28/17 13:32 Estimated GFR 53 08/28/17 13:32 Glucose 100 mg/dL (70-100) 08/28/17 13:32 Calcium 10.0 mg/dL (8.5-10.4) 08/28/17 13:32 Visualized and Interpreted imaging results: Yes Interpretation: hip x-ray demonstrating R hip fracture Assessment & Plan Assessment: 87 yo F p/w acute hip fracture in setting of severe dementia Plan: # Hip fracture. Acute, new problem, further w/u indicated. 2/2 trauma, trauma consult appreciated - d/w Dr. Christian Baker, he recommends getting CT to determine type of approach - RCRI score 2, conferring 2.5% dung-op risk of CV morbidity/mortality, resulting in intermediate CV risk for intermediate risk ortho surg - that said, patient is HIGH risk for CVA if she experienced dung-op hypotension 2/2 carotid stenosis/vert art stenosis - she is also HIGH risk for post-op acute encephalopathy in setting of anaesthesia and chronically impaired baseline 2/2 severe dementia - her Afib should be rate controlled prior to surg - communicated all of these risks w/ patient and daughter, and, given the alternative of being mostly bedbound and hospice level care, they elect to proceed w/ surg at this time - will hold eliquis x 24hrs if possible, last dose this AM, pending surgical urgency - IS/bowel reg/pain control # Permanent Afib. Hold eliquis, cont dilt 300 # CKD Stage III. Cont monitor renal fxn # Chronic encephalopathy. Sev dementia at baseline, patient normally able to follow commands and reside at [place] (memory care unit at [facility]) - patient will require SNF rehab following this hospitalization, and counseled daughter that patient will have a protracted and potentially complicated post- op recovery # Carotid stenosis. Chronic, outside records reviewed including Discharge Summary by Jeannette Coe 08/20/17, reporting sev stenosis on L on CUS, no surgical intervention recommended given co-morbidities - holding ASA, cont statin Diet. NPO w/ IVF Code. DNR per daughter who is MDPOA PPx. Holding pharm given surg Dispo. ADD uncertain, anticipated lOS > 48hrs warranting inpatient admit status for reasonable medical necessity including hip fracture requiring surgery w/ dementia.
[2017-08-28] MEDS ORDERED: POLYETHYLENE GLYCOL 3350 17 GM PKT PO PRN (16:41)
[2017-08-28] MEDS ORDERED: MAGNESIUM HYDROXIDE 30 ML UDCUP PO PRN (16:41)
[2017-08-28] MEDS ORDERED: LACTULOSE 20 GM/30 ML UDCUP PO PRN (16:41)
[2017-08-28] MEDS: SENNOSIDES/DOCUSATE SODIUM TAB PO SCH (16:57)
[2017-08-28] MEDS ORDERED: DICLOFENAC SODIUM 1% 100 GM GEL TP PRN (17:00)
--- NOTE | 2017-08-28 17:01 | PDCONSULT ---
Forensic Manager Note: Trauma Service Consult. 87 y/o female who fell hitting her head earlier today at the [facility]/ [place]. She was transported to the [facility] ED as a LTA+ and was initially downgraded after a negative head CT. She was discharged from the ED and upon gait testing reported right hip pain. Imaging showed an impacted right femoral neck fracture. She was admitted to the hospitalist service and appropriate surgical consultation was requested. 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 FH: NC ROS: truly unobtainable given the patient's dementia PE: T36.9 P92 R16 BP 133/96 [id number]% RA pleasantly demented elderly woman in NAD HEENT: NCAT/no cervical spine tenderness/trachea midline lungs: CTA/diminished at bases CVS: IRRR 2/6 RADHA abd: soft/non-tender, well healed Pfanenstiehl incision pelvis: tender R hip ext: tender R wrist/R knee vasc: femoral pulses +2/+2 Pop +1/+1, DP/PT non-palpable, soft bilateral carotic bruits neuro: not oriented to place or time/daughter confirms this to be her baseline dementia Imaging: right femoral neck fx Lab: wbc 9.5 H/H 14.5/43.[address] head/cervical spine neg INR 1.39 PT 17.0 PTT 25.8 right knee negative Na 141 K 3.7 creat 1.0 gluc 100 right wrist pending Imp: s/p fall with right femoral neck fracture chronic A-fib on Eliquis carotid stenoses on ASA peripheral vascular disease-infrapopliteal Rec: admit for observation, supportive care, Orthopedic consultation Hold Eliquis/ASA, repeat cbc/platlets in AM check right wrist film initiate bridging therapy with Enoxaparin if off Eliquis beyond 48 hours/ resume ASA if thrombocytosis on repeat platlet assay ` comfort measures/diet as tolerated until 8 hours prior to any surgery discussed plan of care with daughter Davide
[2017-08-28] MEDS: SULFAMETHOX/TMP 800/160 MG 1 TAB PO SCH (17:19)
[2017-08-28] MEDS: ACYCLOVIR 400 MG TAB PO SCH (17:20)
[2017-08-29] MEDS: ACYCLOVIR 400 MG TAB PO SCH ×5 (00:29→23:04)
[2017-08-29] MEDS: SENNOSIDES/DOCUSATE SODIUM TAB PO SCH ×3 (00:30→23:04)
[2017-08-29] MEDS: VENLAFAXINE HCL 75 MG TAB PO SCH ×3 (00:30→16:04)
[2017-08-29] MEDS: EUCERIN LOTION TP SCH ×2 (00:38→23:56)
[2017-08-29] MEDS: TERBINAFINE 30 GM CRTUBE TP SCH ×2 (00:38→23:57)
[2017-08-29 05:26] LABS: COLOR AMBER; LEUKOCYTE ESTERASE,URINE NEGATIVE (NEGATIVE); NITRITE,URINE NEGATIVE (NEGATIVE)
--- NOTE | 2017-08-29 05:30 | GCON ---
[f rep st] CONSULTATION Patient Name: MEERA KAY N-Number: [id number] Date of : 1930 Patient Status: Inpatient Attending Doctor: Andi Chapman MD Consulting Doctor: Dirk Baker MD Date of service: 08/28/17 CPT codes: CPT code 14367 ER visit requiring admission or initial inpatient visit, level three Modifier 57 decision for surgery CHIEF COMPLAINT: Right hip pain HISTORY OF PRESENT ILLNESS: This is a very pleasant 87 year old female with a significant history for mechanical fall onto right hip on 08/28/17 with subsequent right hip pain and inability to bear weight. She presented to [facility] ER and was found to have a right femoral neck fracture (complete, minimally displaced). Of note, she also has a significant history for right buttock and posterior thigh shingles. PROBLEM LIST: Right femoral neck fracture, active shingles on right buttock and posterior thigh PAST MEDICAL HISTORY: A-fib, dementia SURGERIES: Bilateral mastectomy, SOCIAL HISTORY: Lives at [facility] with [facility] FAMILY HISTORY: Non-contributory CURRENT MEDICATIONS: Acetaminophen, Eliquis, Vitamin D3, Diltiazem, Hydrocerin Lotion, Exelon, Senexon, terbinafine, venlafaxine, acyclovir, aspirin, atorvastatin, diclofenac , Bactrim DS ALLERGIES: Penicillins, Mercury REVIEW OF SYSTEMS Constitutional: No unexpected weight loss, weight gain, fevers, chills, or fatigue. Eyes: No blurred or double vision, no eye pain, redness or swelling. ENT: No headaches, difficulty swallowing, nose bleeds, tinnitus, or earaches. Cardiovascular: No chest pain, palpitations, fainting or murmurs. Respiratory: No shortness of breath, wheezing, cough, of difficulty breathing. GI: No reflux, no nausea or vomiting, no constipation, diarrhea, or bloody stools. Genitourinary: No urinary frequency or urgency, no pain with urination. Skin: No skin changes, rashes, itching, or redness. Neurologic: No unsteadiness of gait, no dizziness, tremors, or seizures. Psychiatric: No nervousness, anxiety, depression, or hallucinations. Hematologic: No increased bleeding or easy bruising. Endocrine: No excessive thirst or urination and no heat or cold intolerances. Allergic: No reactions to food or environment. Musculoskeletal: See history of present illness. PHYSICAL EXAM General: No apparent distress. Orientation: Alert and oriented times three Mood and affect: Calm, appropriate. Gait and station: RADHA Skin: Right buttock and posterior thigh shingles Lymph: Non tender neck, axillary and inguinal nodes. Chest: Equal expansion, no pain with deep breaths, speaks in coherent sentences. Cardiovascular: Regular pulse. Abdomen: Soft, non-tender, no masses, no palpable hernias. Bilateral hip examination Inspection/palpation: Right: TTP right hip and groin, pain with gentle ROM, rash overlying the right buttock and posterior thigh consistent with shingles Left: Soft, non-tender. Range of motion Flexion: RADHA / 100 / 100 Extension: RADHA / 30 / 30 Abduction: RADHA / 40 / 40 Adduction: RADHA / 20 / 20 Strength (R / L / Normal) Muscle(s) Quadriceps (L3-L4): 3 / 5 / 5 Hamstrings (L4-L5): 3 / 5 / 5 Tibialis anterior (L4): 3 / 5 / 5 EHL (L5): 3 / 5 / 5 FHL (S1): 3 / 5 / 5 Gastroc-soleus (S1): 3 / 5 / 5 Sensory (R / L / Normal) Dermatomes L1 (groin): + / + / + L2 (medial upper thigh): + / + / + L3 (anterior thigh): + / + / + L4 (medial ankle): + / + / + L5 (first dorsal web space): + / + / + S1 (lateral border of foot): + / + / + Peripheral nerves Superficial peroneal: + / + / + Deep peroneal: + / + / + Sural: + / + / + Tibial: + / + / + Saphenous: + / + / + Vascular (R / L / Normal) Dorsalis pedis: 2+ / 2+ / 2+ Tibialis posterior: 2+ / 2+ / 2+ Medical decision making Data Imaging study: right hip radiographs Action: interpreted Interpretation / pertinent findings: right femoral neck fracture (complete, minimally displaced) Imaging study: CT of pelvis Action: ordered and interpreted Interpretation / pertinent findings: right femoral neck fracture (complete, minimally displaced) Diagnoses New diagnosis: right femoral neck fracture Work-up planned: yes: see assessment and plan Assessment and plan This is a 87 year old female with a right femoral neck fracture (complete and displaced) as well as active shingles on her right buttock and posterior thigh - - currently on Eliquis for A-fib -As such I have discussed with the patient the risks, benefits, alternatives, and complications associated with both non-operative (specifically, observation ) and operative (specifically, right proximal femur reduction and internal fixation versus right hip charlie-arthroplasty vs right total hip arthroplasty) forms of treatment -The patient and patients daughter (POA) fully understands the risks, benefits, alternatives, and complications of both forms of treatment and they wish to proceed with operative intervention - The patient will undergo pre-operative clearance by the medicine team and will be taken to the OR by Dr. Arellano after she has been off of the Eliquis for roughly 48 hours Time I have spent 80 minutes of [id number] time with the patient during this visit. Over fifty percent of this time was spent counseling the patient on the risks, benefits, alternatives, and complications of both non-operative and operative forms of treatment as outlined above. /[id number]/MODL MTDD
[2017-08-29 05:32] LABS: BACTERIA TRACE /hpf (NONE SEEN); MUCUS 1+ /lpf (NONE-1+); RBC,URINE 50-182 /hpf (0-3)
[2017-08-29 05:38] LABS: % IMMATURE GRANULYOCYTES 0.2 % (0.0-1.1); ABSOLUTE IMMATURE GRANULOCYTES 0.02 10^3/uL (0.00-0.10); ADD DIFF? NO; ADD MORPH? NO; ATYPICAL LYMPHOCYTE FLAG 10 (0-99); FRAGMENT RBC FLAG 0 (0-99); HEMATOCRIT 36.6 % (38.0-47.0); HEMOGLOBIN 12.2 g/dL (12.6-16.3); LEFT SHIFT FLG 0 (0-99); LIPEMIA HEMOLYSIS FLAG 80 (0-99); MEAN CELL HEMOGLOBIN 29.7 pg (27.9-34.1); MEAN CELL HEMOGLOBIN CONCENTR. 33.3 g/dL (32.4-36.7); MEAN CELL VOLUME 89.1 fL (81.5-99.8); RED BLOOD CELL COUNT 4.11 10^6/uL (4.18-5.33); RED CELL DISTRIBUTION WIDTH 14.7 % (11.5-15.2)
[2017-08-29 05:50] LABS: ANION GAP 10 mEq/L (8-16); CALCIUM 9.1 mg/dL (8.5-10.4); CARBON DIOXIDE 22 mEq/l (22-31); CHLORIDE 105 mEq/L (97-110); CREATININE 0.7 mg/dL (0.6-1.0); GLOMERULAR FILTRATION RATE > 60; GLUCOSE 128 mg/dL (70-100); MAGNESIUM 1.7 mg/dL (1.6-2.3); PLATELET CLUMPS FLAG 300 (0-99); POTASSIUM 3.6 mEq/L (3.5-5.2); SODIUM 137 mEq/L (134-144)
[2017-08-29 05:51] LABS: PLATELET COUNT 198 10^3/uL (150-400)
[2017-08-29 05:52] LABS: ADD SCAN? NO
[2017-08-29] MEDS: CHOLECALCIFEROL VIT D3 2,000 UNITS TAB/CAP PO SCH (09:07)
[2017-08-29] MEDS: SULFAMETHOX/TMP 800/160 MG 1 TAB PO SCH ×2 (09:07→15:58)
[2017-08-29] MEDS: DILTIAZEM CD 180 MG CAP PO SCH (09:07)
[2017-08-29] MEDS: oxyCODONE IR 5 MG TAB PO PRN ×3 (09:08→23:31)
[2017-08-29] MEDS: ATORVASTATIN CALCIUM 20 MG TAB PO SCH (09:09)
[2017-08-29] MEDS: RIVASTIGMINE TD SCH (09:10)
[2017-08-29] MEDS: DILTIAZEM CD 300 MG CAP PO SCH ×2 (09:11→09:14)
--- NOTE | 2017-08-29 12:30 | PDMN ---
Medical Necessity Medical necessity: est los >2 mn for R hip fx r/t fall, requiring surgery; high risk for CVA/encephalopathy; comorbid advanced age, AFIB on AC, dementia, CKD, carotid stenosis; per H&P & order 08/28/17.
--- NOTE | 2017-08-29 16:50 | HOSPPROG ---
Hospitalist Progress Note Assessment/Plan: Assessment: 87 yo F p/w acute hip fracture in setting of severe dementia Plan: # Hip fracture. Acute, 2/2 trauma, d/w Dr. Baker, he recs surgery tomorrow AM s /p eliquis out of system - RCRI score 2, conferring 2.5% dung-op risk of CV morbidity/mortality, resulting in intermediate CV risk for intermediate risk ortho surg - that said, patient is HIGH risk for CVA if she experienced dung-op hypotension 2/2 carotid stenosis/vert art stenosis - she is also HIGH risk for post-op acute encephalopathy in setting of anaesthesia and chronically impaired baseline 2/2 severe dementia - her Afib should be rate controlled prior to surg - communicated all of these risks w/ patient and daughter 08/28 - will cont hold eliquis through tomorrow, then restart on 08/31 AM - IS/bowel reg/pain control # Permanent Afib. Hold eliquis, increase dilt to 360 given RVR 2/2 pain # CKD Stage III. Cont monitor renal fxn # Chronic encephalopathy. Sev dementia at baseline, patient normally able to follow commands and reside at [place] (memory care unit [facility]) - patient will require SNF rehab following this hospitalization, anticipate protracted recovery given dementia # Carotid stenosis. Chronic, no surgical intervention recommended given co- morbidities - holding ASA, cont statin # Singles (VZV). Active, posterior R thigh, on precautions and acyclovir Diet. Reg, NPO after MN Code. DNR per daughter who is MDPOA PPx. Holding pharm given surg Dispo. ADD uncertain, surg tomorrow Subjective: patient denies pain, no BM today Objective: Vital Signs Temp Pulse Resp BP Pulse Ox 36.7 C 69 18 141/76 H 88 L 08/29/17 15:13 08/29/17 15:13 08/29/17 15:13 08/29/17 15:13 08/29/17 15:13 Laboratory Results 08/29/17 05:29 08/29/17 05:29 08/28/17 08/29/17 08/30/17 05:59 05:59 05:59 Intake Total 486 50 Output Total 550 Balance -64 50 PT 17.0 SEC (12.0-15.0) H 08/28/17 13:32 INR 1.39 (0.83-1.16) H 08/28/17 13:32 - Physical Exam Constitutional: no apparent distress, not in pain, No uncomfortable Cardiovascular: systolic murmur (II/ at sternum), irregularly irregular, tachycardia, No edema Respiratory: no respiratory distress, no rales or rhonchi, clear to auscultation Gastrointestinal: normoactive bowel sounds, soft, non-tender abdomen, no palpable masses, No distension Skin: other (lesions posterior R thigh w/o surrounding erythema, skin breaks, no ecchymoses over R lateral hip, no soft tissue edema) Musculoskeletal: other (short, external rotation R leg) Neurologic: other (AAOx1) Psychiatric: not anxious, encephalopathic, poor insight, poor judgement, poor memory, No agitated ICD10 Worksheet Patient Problems: Problems Problem Status Onset Fall Acute Contusion, hip Acute Catatonia Acute Low back pain Acute Unable to ambulate Acute Fracture of hip, right, closed Acute
--- NOTE | 2017-08-29 17:15 | ASMTCMCOM ---
CM Note CM Note Notes: Pt lives at [facility] [place], may need SNF. PT/OT to eval Date Signed: 08/29/2017 05:15 PM Electronically Signed By:Carolyn Das RN
--- NOTE | 2017-08-29 20:38 | SOAPPROG ---
SOAP Progress Note Assessment/Plan: Assessment: Tertiary exam Pleasantly demented 87-year-old female with multiple medical problems. She sustained a fall resulting in a impacted femoral neck fracture. She is unable ambulate on that hip. She is responsive but incoherent in her verbalization and she is complaining of no pain at the present time HEENT with minor abrasion on the head Chest nontender clear and symmetric Cor is regular rhythm Abdomen soft and nontender Extremities have good capillary filling and pulses. Her right hip is painful with motion Plan: ORIF in the a.m./she has a significant medical risk with her severe carotid disease and peripheral vascular disease 08/29/17 20:35 Objective: Vital Signs Temp Pulse Resp BP Pulse Ox 36.7 C 69 18 141/76 H 88 L 08/29/17 15:13 08/29/17 15:13 08/29/17 15:13 08/29/17 15:13 08/29/17 15:13 Laboratory Results 08/29/17 05:29 08/29/17 05:29 08/28/17 08/29/17 08/30/17 05:59 05:59 05:59 Intake Total 486 350 Output Total 550 Balance -64 350 PT 17.0 SEC (12.0-15.0) H 08/28/17 13:32 INR 1.39 (0.83-1.16) H 08/28/17 13:32 ICD10 Worksheet Patient Problems: Problems Problem Status Onset Fall Acute Fracture of hip, right, closed Acute Catatonia Acute Contusion, hip Acute Low back pain Acute Unable to ambulate Acute
--- NOTE | 2017-08-30 07:10 | PDANEPAE ---
ANE Past Medical History - Cardiovascular History Hx Hypertension: No Hx Arrhythmias: Yes Hx Chest Pain: No Hx Coronary Artery / Peripheral Vascular Disease: No Hx CHF / Valvular Disease: No Hx Palpitations: Yes - Pulmonary History Hx COPD: No Hx Asthma/Reactive Airway Disease: No Hx Recent Upper Respiratory Infection: No Hx Oxygen in Use at Home: No Hx Sleep Apnea: No Sleep Apnea Screening Result - Last Documented: Negative - Endocrine History Hx Diabetes: No Hypothyroid: No Hyperthyroid: No Obesity: no - Renal History Hx Renal Disorders: Yes - Chronic Pain History Chronic Pain: No ANE Review of Systems Review of Systems: ANE Patient History - Allergies Allergies/Adverse Reactions: Penicillins Allergy (Verified 06/14/17 11:57) Rash MERCURY Allergy (Uncoded 03/15/12 12:56) Rash - Home Medications Home Medications: Acetaminophen [Tylenol 325mg (*)] 650 mg PO TID@,, PRN 08/18/17 [Last Taken Unknown] Apixaban [Eliquis] 2.5 mg PO BID@08/18/17 [Last Taken Unknown] Cholecalciferol Vit D3 [Vitamin D3 (*)] 2,000 units PO DAILY@08/18/17 [Last Taken Unknown] Diltiazem HCl [Diltiazem 24Hr ER] 300 mg PO DAILY@08/18/17 [Last Taken Unknown] Mineral Oil/I-Prop Myr/Water [Hydrocerin Lotion] 1 dayron [facility] 08/18/17 [Last Taken Unknown] Rivastigmine [Exelon 9.5mg/24 hrs] 1 each TD DAILY@08/18/17 [Last Taken Unknown] Sennosides/Docusate Sodium [SENEXON-S TABLET] 1 each PO BID PRN 08/18/17 [Last Taken Unknown] Terbinafine HCl [LamISIL AT Cream (*)] 1 dayron [facility] 08/18/17 [Last Taken Unknown] Venlafaxine HCl [Venlafaxine 75MG (*)] 75 mg PO BID@,08/18/17 [Last Taken Unknown] Acyclovir [Zovirax 400 mg (*)] 400 mg PO QID@,,,08/28/17 [Last Taken Unknown] Aspirin [Aspirin 81mg (*)] 81 mg PO DAILY@08/28/17 [Last Taken Unknown] Atorvastatin Calcium [Lipitor 20 mg (*)] 20 mg PO DAILY@08/28/17 [Last Taken Unknown] Diclofenac Sodium 1% [Voltaren Gel (*)] 4 gm TP BID@ PRN 08/28/17 [Last Taken Unknown] Sulfamethox/Tmp 800/160 mg [Bactrim Ds] 1 tab PO BID@08/28/17 [Last Taken Unknown] - NPO status NPO Since - Liquids (Date): 08/29/17 NPO Since - Liquids (Time): 23:30 NPO Since - Solids (Date): 08/29/17 NPO Since - Solids (Time): 23:30 - Smoking Hx Smoking Status: Unknown if ever smoked - Alcohol Use Alcohol Use: Sober ANE Labs/Vital Signs - Labs Result Diagrams: 08/29/17 05:29 08/29/17 05:29 - Vital Signs Blood Pressure: 128/92 Heart Rate: 106 Respiratory Rate: 20 O2 Sat (%): 90 Height: 165.1 cm Weight: 57.2 kg ANE Physical Exam - Airway Neck exam: decreased ROM Mallampati Score: Class 2 Mouth exam: normal dental/mouth exam - Pulmonary Pulmonary: reduced air movement - Cardiovascular Cardiovascular: irregularly irregular - ASA Status ASA Status: III ANE Anesthesia Plan Anesthesia Plan: GA w LMA
[2017-08-30] MEDS ORDERED: PROPOFOL 200 MG/20 ML VIAL ONE (07:24)
[2017-08-30] MEDS ORDERED: fentaNYL 100 MCG/2 ML INJ ONE (07:26)
[2017-08-30] MEDS ORDERED: BUPIVACAINE 0.5% 30 ML SDV ONE (07:48)
[2017-08-30] MEDS ORDERED: ONDANSETRON 4 MG/2 ML VIAL ONE (08:08)
[2017-08-30] MEDS ORDERED: LIDOCAINE 2% 5 ML SDV ONE (08:08)
[2017-08-30] MEDS ORDERED: DEXAMETHASONE 4 MG/ML VIAL ONE (08:08)
[2017-08-30] MEDS ORDERED: PHENYLEPHRINE HCL 100 MCG/ML SYR ONE (08:08)
--- NOTE | 2017-08-30 08:24 | POSTOPPROG ---
Post Op Note Date of Operation: 08/30/17 Surgeon: Samara Arellano Anesthesiologist: Marlin Anesthesia: LMA Pre-op Diagnosis: R femoral neck fx Post-op Diagnosis: same Indication: pain Procedure: 3 screws R femoral neck Findings: femoral neck fx Inf/Abcess present in the surg proc area at time of surgery?: No EBL: Minimal
[2017-08-30] MEDS ORDERED: fentaNYL 100 MCG/2 ML INJ IVP PRN (08:32)
[2017-08-30] MEDS ORDERED: ONDANSETRON 4 MG/2 ML VIAL IVP PRN (08:32)
[2017-08-30] MEDS ORDERED: LABETALOL HCL 50 MG/10 ML SYR IVP PRN (08:32)
[2017-08-30] MEDS ORDERED: NALOXONE HCL 0.4 MG/ML INJ IVP PRN (08:32)
--- NOTE | 2017-08-30 08:35 | POSTANESTH ---
Post Anesthetic Evaluation Cardiovascular Status: Similar to Pre-Op Cond Respiratory Status: Similar to Pre-op Cond. Level of Consciousness/Mental Status: Mildly Sleepy, Arousable Pain Control: Adequate, Prn Tx Ordered Nausea/Vomiting Control: Adequate, Prn Tx Ordered Complications Possibly Related to Anesthesia: None Noted
[2017-08-30] MEDS: SENNOSIDES/DOCUSATE SODIUM TAB PO SCH ×2 (11:33→21:40)
[2017-08-30] MEDS: VENLAFAXINE HCL 75 MG TAB PO SCH ×2 (11:33→16:28)
[2017-08-30] MEDS: SULFAMETHOX/TMP 800/160 MG 1 TAB PO SCH ×2 (11:33→16:28)
[2017-08-30] MEDS: CHOLECALCIFEROL VIT D3 2,000 UNITS TAB/CAP PO SCH (11:33)
[2017-08-30] MEDS: DILTIAZEM CD 180 MG CAP PO SCH (11:33)
[2017-08-30] MEDS: ACYCLOVIR 400 MG TAB PO SCH ×5 (11:33→21:41)
[2017-08-30] MEDS: ATORVASTATIN CALCIUM 20 MG TAB PO SCH (11:33)
[2017-08-30] MEDS: RIVASTIGMINE TD SCH (11:40)
--- NOTE | 2017-08-30 13:07 | GOP ---
[f rep st] OPERATIVE REPORT DATE OF OPERATION: 08/30/2017 SURGEON: Tania Arellano MD SILK WORKER: None. ANESTHESIA: LMA. PREOPERATIVE DIAGNOSIS: Right femoral neck fracture. POSTOPERATIVE DIAGNOSIS: Right femoral neck fracture. PROCEDURE PERFORMED: Right hip pinning with 3 screws. FINDINGS: INDICATIONS: The patient is an 87-year-old female with an impacted right femoral neck fracture. Risks and benefits were discussed with the patient's power of bead cutter, including bleeding, infection, damage to nerves and vessels, need for further surgery, risk of blood clots, blood clots going to her lungs, and rare things like stroke, heart attack and . Discussed the high mortality rate with elderly patients with hip fractures. The patient's power of bead cutter expressed understanding and informed consent was obtained. DESCRIPTION OF PROCEDURE: The patient was identified in the preoperative holding area. Her right lower extremity was marked. She was then brought back to the operating room. After induction of anesthesia, she was positioned on the fracture table. She was prepped and draped in the usual sterile fashion. A time out was taken; confirming patient, laterality, procedures, allergies, and antibiotic status. With C-arm fluoroscopy, I identified the area for incision. I made a direct lateral incision. Under fluoroscopy, placed 3 pins into the femoral head, staying superior to the lesser trochanter. I then drilled the outer cortex and placed 3 screws, a 90 mm and two 95 mm screws with washers. These were confirmed on AP and lateral C-arm fluoroscopy. The patient then was copiously irrigated. The incision was closed in layers, and the patient was awakened and brought to PACU in good condition with a well-perfused limb. The plan is to make the patient weightbear as tolerated with a walker. [facility]. She is okay to start her Eliquis on postop day 1. /[id number]/MODL MTDD
--- NOTE | 2017-08-30 16:08 | HOSPPROG ---
Hospitalist Progress Note Assessment/Plan: Assessment: 87 yo F p/w acute hip fracture in setting of severe dementia Plan: # Hip fracture. Acute, 2/2 trauma, POD#[address] Arellano - pain mgmt, bowel regimen - will cont hold eliquis through tomorrow, then restart on 10 AM, will recheck Hgbin - IS/bowel reg/pain control # Permanent Afib. Holding eliquis, increased dilt to 360 given RVR 2/2 pain # CKD Stage III. Cont monitor renal fxn in AM # Chronic encephalopathy. Sev dementia at baseline, patient normally able to follow commands and reside at [place] (memory care unit at [facility]) - patient will require SNF rehab following this hospitalization, anticipate protracted recovery given dementia # Carotid stenosis. Chronic, no surgical intervention recommended given co- morbidities - restart ASA in AM, cont statin # Singles (VZV). Active, posterior R thigh, on precautions and acyclovir # Possible pressure injury. POA, RLE at the site of her VZV - wound care eval appreciated Diet. Re Code. DNR per daughter who is MDPOA PPx. Holding pharm given surg, restart in AM, on SCDs Dispo. ADD uncertain, pending surg recovery Subjective: patient denies pain Objective: Vital Signs Temp Pulse Resp BP Pulse Ox 36.3 C 70 18 144/70 H 95 08/30/17 15:50 08/30/17 15:50 08/30/17 15:50 08/30/17 15:50 08/30/17 15:50 Laboratory Results 08/29/17 05:29 08/29/17 05:29 08/29/17 08/30/17 08/31/17 05:59 05:59 05:59 Intake Total 486 350 300 Output Total 550 10 Balance -64 350 290 PT 17.0 SEC (12.0-15.0) H 08/28/17 13:32 INR 1.39 (0.83-1.16) H 08/28/17 13:32 - Physical Exam Constitutional: no apparent distress, not in pain, chronically ill appearing, No uncomfortable Cardiovascular: irregularly irregular, tachycardia (intermittent), No systolic murmur, No edema Respiratory: no respiratory distress, no rales or rhonchi, clear to auscultation , reduced air movement (bilat bases), No expiratory wheeze, No inspiratory crackles Gastrointestinal: normoactive bowel sounds, soft, non-tender abdomen, no palpable masses Skin: other (shingles present on RLE posterior thigh w/ small skin tears, mild ecchymoses around surg site w/ soft tissue edema, no tenderness) Neurologic: other (AAOx1 person only), No facial droop Psychiatric: encephalopathic, poor insight, poor judgement, poor memory, other ( cooperative and following commands) ICD10 Worksheet Patient Problems: Problems Problem Status Onset Fall Acute Contusion, hip Acute Catatonia Acute Low back pain Acute Unable to ambulate Acute Fracture of hip, right, closed Acute
[2017-08-30] MEDS: ACETAMINOPHEN 325 MG TAB PO PRN ×2 (16:28→21:40)
[2017-08-30] MEDS: oxyCODONE IR 5 MG TAB PO PRN (21:41)
[2017-08-30] MEDS: EUCERIN LOTION TP SCH (21:57)
[2017-08-30] MEDS: TERBINAFINE 30 GM CRTUBE TP SCH (21:58)
[2017-08-31 05:25] LABS: HEMATOCRIT 34.7 % (38.0-47.0); HEMOGLOBIN 11.3 g/dL (12.6-16.3)
[2017-08-31 05:40] LABS: ANION GAP 8 mEq/L (8-16); CALCIUM 9.6 mg/dL (8.5-10.4); CARBON DIOXIDE 23 mEq/l (22-31); CHLORIDE 105 mEq/L (97-110); CREATININE 0.8 mg/dL (0.6-1.0); GLOMERULAR FILTRATION RATE > 60; GLUCOSE 102 mg/dL (70-100); POTASSIUM 4.3 mEq/L (3.5-5.2); SODIUM 136 mEq/L (134-144)
[2017-08-31] MEDS: DILTIAZEM CD 180 MG CAP PO SCH (09:43)
[2017-08-31] MEDS: CHOLECALCIFEROL VIT D3 2,000 UNITS TAB/CAP PO SCH (09:43)
[2017-08-31] MEDS: ATORVASTATIN CALCIUM 20 MG TAB PO SCH (09:43)
[2017-08-31] MEDS: oxyCODONE IR 5 MG TAB PO PRN ×3 (09:44→20:31)
[2017-08-31] MEDS: SENNOSIDES/DOCUSATE SODIUM TAB PO SCH ×2 (09:44→20:30)
[2017-08-31] MEDS: VENLAFAXINE HCL 75 MG TAB PO SCH ×2 (09:44→17:12)
[2017-08-31] MEDS: ASPIRIN 81 MG CHEWABLE TAB PO SCH (09:46)
[2017-08-31] MEDS: SULFAMETHOX/TMP 800/160 MG 1 TAB PO SCH (09:46)
[2017-08-31] MEDS: APIXABAN 2.5 MG TAB PO SCH ×2 (09:46→17:11)
[2017-08-31] MEDS: RIVASTIGMINE TD SCH (09:48)
[2017-08-31] MEDS: ACYCLOVIR 400 MG TAB PO SCH ×4 (09:56→20:30)
--- NOTE | 2017-08-31 12:44 | ASMTCMCOM ---
CM Note CM Note Notes: Pt. is an 87-year-old woman admitted after a fall where she hit her head. Pt. w/ severe dementia. Pt. lives at the [facility] in memory care. Plan to return there after rehab stay. Pt. on airborne precautions for shingles. SWer met w/ daughter Marge in [facility] today. Marge would like SNF referrals sent to [facility]. SWer sent referrals via [employer] today. PT ordered, but consult not yet complete. Voalted PTs who will figure out who will consult. Daughter requesting sitter - SWer let back end architect and RN know. Discussed whether daughter thought Pt. was close to hospice care yet. Daughter aware of Pt's process and decline over 5 years and does not thinks she is currently ready. Encouraged dtr to engage w/ care providers about hospice if daughter fell it was indicated. Plan for SNF d/c when Pt. accepted and Pt. ready for d/c. Date Signed: 08/31/2017 12:44 PM Electronically Signed By:Drea Guevara LCSW
--- NOTE | 2017-08-31 12:50 | HOSPPROG ---
Hospitalist Progress Note Assessment/Plan: 87 yo F p/w acute hip fracture in setting of severe dementia. First encounter, chart reviewed. D/W RN and CM. Plan: # Hip fracture. - Acute, 2/2 trauma, POD#[address] Arellano - pain mgmt, bowel regimen - eliquis on hold will restart, will recheck Hgb in am - IS/bowel reg/pain control # Permanent Afib. - eliquis, increased dilt to 360 given RVR 2/2 pain # CKD Stage III. - Stable # Chronic encephalopathy. - Sev dementia at baseline, patient normally able to follow commands and reside at [place] (memory care unit at [facility]) - patient will require SNF rehab following this hospitalization, anticipate protracted recovery given dementia # Carotid stenosis. - Chronic, no surgical intervention recommended given co-morbidities - restart ASA, cont statin # Singles (VZV). - Active, posterior R thigh, on precautions and acyclovir # Possible pressure injury. POA, RLE at the site of her VZV - wound care eval appreciated Diet. Re Code. DNR per daughter who is MDPOA PPx. restarted meds, on SCDs Dispo. ADD uncertain, pending surg recovery Subjective: Confused. No pain. Objective: Vital Signs Temp Pulse Resp BP Pulse Ox 36.9 C 110 H 16 142/84 H 94 08/31/17 08:00 08/31/17 09:43 08/31/17 08:00 08/31/17 09:43 08/31/17 08:00 Laboratory Results 08/31/17 04:45 08/31/17 04:45 08/30/17 08/31/17 09/01/17 05:59 05:59 05:59 Intake Total 350 750 150 Output Total 10 Balance 350 740 150 PT 17.0 SEC (12.0-15.0) H 08/28/17 13:32 INR 1.39 (0.83-1.16) H 08/28/17 13:32 - Physical Exam Constitutional: appears nourished, not in pain, chronically ill appearing Eyes: PERRL, anicteric sclera, EOMI Ears, Nose, Mouth, Throat: moist mucous membranes, hearing normal, ears appear normal Cardiovascular: regular rate and rhythym, No JVD, No edema Respiratory: no respiratory distress, no rales or rhonchi, reduced air movement Gastrointestinal: normoactive bowel sounds, No tenderness, No ascites Skin: warm, normal color, No mottled Musculoskeletal: pain with ROM, muscular tenderness, generalized weakness Neurologic: No AAOx3 Psychiatric: encephalopathic, poor memory, No thought process linear ICD10 Worksheet Patient Problems: Problems Problem Status Onset Fall Acute Contusion, hip Acute Catatonia Acute Low back pain Acute Unable to ambulate Acute Fracture of hip, right, closed Acute
[2017-08-31] MEDS: ACETAMINOPHEN 325 MG TAB PO PRN ×2 (13:34→20:30)
--- NOTE | 2017-08-31 16:12 | SOAPPROG ---
SOAP Progress Note Assessment/Plan: Assessment: POD 1 s/p R hip pinning doing better, more alert still confused dressing dry cont PT WBAT with walker will need SNF fu [facility] 09/12 for staple removal no dressing change needed call with questions ok to restart denice Plan: 08/31/17 16:10 Objective: Vital Signs Temp Pulse Resp BP Pulse Ox 36.3 C 84 17 101/78 98 08/31/17 12:00 08/31/17 12:00 08/31/17 12:00 08/31/17 12:00 08/31/17 12:00 Laboratory Results 08/31/17 04:45 08/31/17 04:45 08/30/17 08/31/17 09/01/17 05:59 05:59 05:59 Intake Total 350 750 150 Output Total 10 Balance 350 740 150 PT 17.0 SEC (12.0-15.0) H 08/28/17 13:32 INR 1.39 (0.83-1.16) H 08/28/17 13:32 ICD10 Worksheet Patient Problems: Problems Problem Status Onset Fall Acute Fracture of hip, right, closed Acute Catatonia Acute Contusion, hip Acute Low back pain Acute Unable to ambulate Acute
--- NOTE | 2017-08-31 17:50 | CPEKG ---
Heart Rate: 97 RR Interval: 619 QRSD Interval: 172 QT Interval: 392 QTC Interval: 498 QRS Zillah: 114 T Wave Zillah: -6 EKG Severity - ABNORMAL ECG - EKG Impression: ATRIAL FIBRILLATION, V-RATE 67-136 EKG Impression: RIGHT BUNDLE BRANCH BLOCK EKG Impression: CONSIDER LEFT VENTRICULAR HYPERTROPHY Electronically Signed By: Andi Wade 01-Sep-2017 08:35:47
[2017-08-31] MEDS: TERBINAFINE 30 GM CRTUBE TP SCH (22:04)
[2017-08-31] MEDS: EUCERIN LOTION TP SCH (22:04)
[2017-09-01 04:48] LABS: HEMOGLOBIN 11.6 g/dL (12.6-16.3)
[2017-09-01] MEDS: oxyCODONE IR 5 MG TAB PO PRN ×2 (08:10→22:15)
[2017-09-01] MEDS: ATORVASTATIN CALCIUM 20 MG TAB PO SCH (08:12)
[2017-09-01] MEDS: VENLAFAXINE HCL 75 MG TAB PO SCH ×2 (08:12→16:24)
[2017-09-01] MEDS: SENNOSIDES/DOCUSATE SODIUM TAB PO SCH ×2 (08:12→22:15)
[2017-09-01] MEDS: APIXABAN 2.5 MG TAB PO SCH ×2 (08:12→16:24)
[2017-09-01] MEDS: DILTIAZEM CD 180 MG CAP PO SCH (08:12)
[2017-09-01] MEDS: ACYCLOVIR 400 MG TAB PO SCH ×4 (08:12→22:15)
[2017-09-01] MEDS: ASPIRIN 81 MG CHEWABLE TAB PO SCH (08:12)
[2017-09-01] MEDS: CHOLECALCIFEROL VIT D3 2,000 UNITS TAB/CAP PO SCH (08:13)
[2017-09-01] MEDS: RIVASTIGMINE TD SCH (09:00)
--- NOTE | 2017-09-01 10:22 | WOCRNPDOC ---
WOCRN Advanced Assessment Note - Skin Integrity Problem, Advanced Assess Right Buttock Dressing Type: Open to Air Exudate Amount: Scant Exudate Color: Reddish/Yellow Exudate Characteristic(s): Dried, Serosanguinous Integumentary Issue Intervention: Barrier Cream Applied (Nursing will apply BID and w/ dung-care) Dung Wound Swelling: Mild Wound Bed Color: Red, Yellow Wound Bed Constitution: De-roofed Serous Blister, Draining Serous Blister Site Odor: None Skin Integrity Problem Comment: Patient has extensive shingles lesions extending from her R buttock down to her R posterior thigh. Presently there are no intact vesicles, and all of the lesions are open, and either draining serous fluid or are dried. Erythema and swelling confined to immediate periwound skin. Patient demonstrates significant confusion, and is clearly in pain r/t these lesions. Advise keeping her brief-free to reduce moisture/heat, and applying Calazime paste over the lesions. The zinc in the paste should help to dry the lesions out, and the menthol will hopefully provide her w/ some pain relief. lumber stickerDARLENE Moreno present during assessment.
--- NOTE | 2017-09-01 10:48 | HOSPPROG ---
Hospitalist Progress Note Assessment/Plan: 87 yo F p/w acute hip fracture in setting of severe dementia. Plan: # Hip fracture. - Acute, 2/2 trauma, POD#[address] Arellano - pain mgmt, bowel regimen - eliquis restarted, Hgb stable - IS/bowel reg/pain control # Permanent Afib. - eliquis, increased dilt to 360 given RVR 2/2 pain # CKD Stage III. - Stable # Chronic encephalopathy. - Sev dementia at baseline, patient normally able to follow commands and reside at [place] (memory care unit at [facility]) - patient will require SNF rehab following this hospitalization, anticipate protracted recovery given dementia # Carotid stenosis. - Chronic, no surgical intervention recommended given co-morbidities - restart ASA, cont statin # Singles (VZV). - Active, posterior R thigh, on precautions and acyclovir # Possible pressure injury. POA, RLE at the site of her VZV - wound care eval appreciated Diet. Re Code. DNR per daughter who is MDPOA PPx. restarted meds, on SCDs Dispo. Plan for DC in am to SNF if stable Subjective: Up in bed. No complaints. Eating. Objective: Vital Signs Temp Pulse Resp BP Pulse Ox 36.6 C 77 23 H 137/75 H 97 09/01/17 07:57 09/01/17 08:12 09/01/17 07:57 09/01/17 08:12 09/01/17 07:57 Laboratory Results 09/01/17 04:23 08/31/17 04:45 08/31/17 09/01/17 09/02/17 05:59 05:59 05:59 Intake Total 750 600 Output Total 10 Balance 740 600 PT 17.0 SEC (12.0-15.0) H 08/28/17 13:32 INR 1.39 (0.83-1.16) H 08/28/17 13:32 - Physical Exam Constitutional: appears nourished, not in pain Eyes: PERRL, anicteric sclera Ears, Nose, Mouth, Throat: moist mucous membranes, ears appear normal Cardiovascular: irregularly irregular, No JVD Respiratory: no respiratory distress, reduced air movement Gastrointestinal: No tenderness, No ascites Skin: warm, normal color Musculoskeletal: pain with ROM, muscular tenderness, generalized weakness Neurologic: No AAOx3 Psychiatric: not anxious, poor insight, poor judgement, poor memory, No thought process linear ICD10 Worksheet Patient Problems: Problems Problem Status Onset Fall Acute Contusion, hip Acute Catatonia Acute Low back pain Acute Unable to ambulate Acute Fracture of hip, right, closed Acute
--- NOTE | 2017-09-01 15:26 | ASMTCMCOM ---
CM Note CM Note Notes: Chart reviewed. Spoke with patient's RN. She is very confused and needs a sitter. Unable to converse. Referrals pending CM to follow. Date Signed: 09/01/2017 03:26 PM Electronically Signed By:Jaqui Mckeon RN
[2017-09-01] MEDS: ACETAMINOPHEN 325 MG TAB PO PRN ×2 (16:23→22:16)
[2017-09-01] MEDS: TERBINAFINE 30 GM CRTUBE TP SCH (22:49)
[2017-09-01] MEDS: EUCERIN LOTION TP SCH (22:49)
[2017-09-02] MEDS: CHOLECALCIFEROL VIT D3 2,000 UNITS TAB/CAP PO SCH (08:21)
[2017-09-02] MEDS: ATORVASTATIN CALCIUM 20 MG TAB PO SCH (08:21)
[2017-09-02] MEDS: APIXABAN 2.5 MG TAB PO SCH ×2 (08:21→17:57)
[2017-09-02] MEDS: DILTIAZEM CD 180 MG CAP PO SCH (08:21)
[2017-09-02] MEDS: ASPIRIN 81 MG CHEWABLE TAB PO SCH (08:22)
[2017-09-02] MEDS: ACYCLOVIR 400 MG TAB PO SCH ×4 (08:22→22:54)
[2017-09-02] MEDS: VENLAFAXINE HCL 75 MG TAB PO SCH ×2 (08:22→17:57)
[2017-09-02] MEDS: oxyCODONE IR 5 MG TAB PO PRN ×4 (08:22→22:52)
[2017-09-02] MEDS: SENNOSIDES/DOCUSATE SODIUM TAB PO SCH ×2 (08:22→22:54)
[2017-09-02] MEDS: RIVASTIGMINE TD SCH (12:15)
--- NOTE | 2017-09-02 12:41 | HOSPPROG ---
Hospitalist Progress Note Assessment/Plan: 87 yo F p/w acute hip fracture in setting of severe dementia. Plan: # Hip fracture. - Acute, 2/2 trauma, POD#[address] Arellano - pain mgmt, bowel regimen - eliquis restarted, Hgb stable - IS/bowel reg/pain control # Permanent Afib. - eliquis, increased dilt to 360 given RVR 2/2 pain # CKD Stage III. - Stable # Chronic encephalopathy. - Sev dementia at baseline, patient normally able to follow commands and reside at [place] (memory care unit at [facility]) - patient will require SNF rehab following this hospitalization, anticipate protracted recovery given dementia # Carotid stenosis. - Chronic, no surgical intervention recommended given co-morbidities - restart ASA, cont statin # Singles (VZV). - Active, posterior R thigh, on precautions and acyclovir # Possible pressure injury. POA, RLE at the site of her VZV - wound care eval appreciated Diet. Re Code. DNR per daughter who is MDPOA PPx. restarted meds, on SCDs Dispo. Plan for DC when placement found Subjective: Confused. Eating. No pain. Objective: Vital Signs Temp Pulse Resp BP Pulse Ox 36.4 C 93 15 130/79 H 97 09/02/17 12:00 09/02/17 12:00 09/02/17 12:00 09/02/17 12:00 09/02/17 12:00 Laboratory Results 09/01/17 04:23 08/31/17 04:45 09/01/17 09/02/17 09/03/17 05:59 05:59 05:59 Intake Total 600 100 Balance 600 100 PT 17.0 SEC (12.0-15.0) H 08/28/17 13:32 INR 1.39 (0.83-1.16) H 08/28/17 13:32 - Physical Exam Constitutional: no apparent distress, appears nourished Eyes: PERRL, anicteric sclera Ears, Nose, Mouth, Throat: moist mucous membranes, hearing normal Cardiovascular: No JVD, No edema Respiratory: no respiratory distress, reduced air movement Gastrointestinal: No tenderness, No ascites Skin: warm, No mottled Musculoskeletal: pain with ROM, generalized weakness Neurologic: No AAOx3 Psychiatric: not anxious, poor insight, poor judgement, poor memory, No thought process linear ICD10 Worksheet Patient Problems: Problems Problem Status Onset Fall Acute Contusion, hip Acute Catatonia Acute Low back pain Acute Unable to ambulate Acute Fracture of hip, right, closed Acute
--- NOTE | 2017-09-02 16:43 | ASMTCMCOM ---
CM Note CM Note Notes: Yi from [facility] SNF here today. They are considering pt for admission. Pt still has sitter for safety not behaviors and will need to be sitter-free for 24 hrs before d/c to SNF. Per PT pt is able to follow directions. Pt is still on precautions for shingles. Date Signed: 09/02/2017 04:42 PM Electronically Signed By:SRIRAM Lucio
[2017-09-02] MEDS: TERBINAFINE 30 GM CRTUBE TP SCH (22:51)
[2017-09-02] MEDS: ACETAMINOPHEN 325 MG TAB PO PRN (22:52)
[2017-09-02] MEDS: EUCERIN LOTION TP SCH (22:54)
[2017-09-03] MEDS: ACETAMINOPHEN 325 MG TAB PO PRN (04:09)
[2017-09-03] MEDS: oxyCODONE IR 5 MG TAB PO PRN ×4 (04:09→22:27)
[2017-09-03] MEDS: DILTIAZEM CD 180 MG CAP PO SCH (08:01)
[2017-09-03] MEDS: CHOLECALCIFEROL VIT D3 2,000 UNITS TAB/CAP PO SCH (08:01)
[2017-09-03] MEDS: APIXABAN 2.5 MG TAB PO SCH ×2 (08:01→18:41)
[2017-09-03] MEDS: VENLAFAXINE HCL 75 MG TAB PO SCH ×2 (08:01→18:41)
[2017-09-03] MEDS: ACYCLOVIR 400 MG TAB PO SCH ×2 (08:01→11:22)
[2017-09-03] MEDS: SENNOSIDES/DOCUSATE SODIUM TAB PO SCH ×2 (08:01→22:27)
[2017-09-03] MEDS: ATORVASTATIN CALCIUM 20 MG TAB PO SCH (08:03)
[2017-09-03] MEDS: ASPIRIN 81 MG CHEWABLE TAB PO SCH (08:04)
--- NOTE | 2017-09-03 08:39 | HOSPPROG ---
Hospitalist Progress Note Assessment/Plan: 87 yo F p/w acute hip fracture in setting of severe dementia. Today is my 1st encounter with the patient. Chart reviewed. * hip fracture -status post hip pinning on August [address] Arellano -hematoma on right hip area/ will cont close watching/ nursing staff using ice *anemia -will cont close watching / patient is on Eliquis * permanent atrial fibrillation -on Eliquis -diltiazem dose increased to 360 mg due to RVR * chronic kidney disease stage 3 * Hematuria * severe dementia with chronic encephalopathy * shingles /healed w few scabs -on acyclovir/has had 10 days /will dc today/ and dc precautions * possible pressure injury present on admission at the right lower extremity site * carotid stenosis -on aspirin and statin therapy * weight increase of 11 kg -on admit weight was 54 kg, now at 65 kg -will follow -has some swelling/ hematoma in right leg * dvt prophlaxis : Eliquis *Plan : lift precautions, recheck labs in a.m. Vital Signs Temp Pulse Resp BP Pulse Ox 36.4 C 93 15 130/79 H 97 09/02/17 12:00 09/02/17 12:00 09/02/17 12:00 09/02/17 12:00 09/02/17 12:00 Laboratory Results 09/01/17 04:23 Subjective: Hilton is confused, but c/o pain to her hip area when I evaluted it. Objective: Vital Signs Temp Pulse Resp BP Pulse Ox 36.7 C 88 12 136/87 H 97 09/03/17 07:39 09/03/17 08:01 09/03/17 07:39 09/03/17 08:01 09/03/17 07:39 Laboratory Results 09/01/17 04:23 08/31/17 04:45 09/02/17 09/03/17 09/04/17 05:59 05:59 05:59 Intake Total 700 Balance 700 PT 17.0 SEC (12.0-15.0) H 08/28/17 13:32 INR 1.39 (0.83-1.16) H 08/28/17 13:32 - Physical Exam Constitutional: appears nourished, chronically ill appearing, uncomfortable Eyes: PERRL Ears, Nose, Mouth, Throat: hard of hearing Cardiovascular: regular rate and rhythym Respiratory: no respiratory distress, reduced air movement Skin: warm, other (right hip with golf ball size hematoma/ has a few small tears on right side of coccyx area/ one area scabbed) Musculoskeletal: generalized weakness Neurologic: other (oriented only to herself) Psychiatric: interacting appropriately, poor memory ICD10 Worksheet Patient Problems: Problems Problem Status Onset Fall Acute Fracture of hip, right, closed Acute Catatonia Acute Contusion, hip Acute Low back pain Acute Unable to ambulate Acute
[2017-09-03] MEDS: RIVASTIGMINE TD SCH (11:22)
[2017-09-03] MEDS ORDERED: FLU VACC QS 2017-18 (3YR+)/PF 0.5 ML SYR (FLUARIX QUAD) IM ONE ×2 (15:52→18:30)
[2017-09-03] MEDS ORDERED: PNEUMOC 13-VAL CONJ-DIP CRM/PF 0.5 ML SYR IM ONE ×2 (15:52→18:30)
--- NOTE | 2017-09-03 16:23 | ASMTCMCOM ---
CM Note CM Note Notes: Pt accepted at [facility] after 24 hours off sitter. Pt no longer has sitter as of 12:00 today. TC to Chris to see status of [facility], Chris accepts pt for SNF. Dghtr Marge chooses and requests a van for transport. Chris calls back to report she thought pt was a member and lived at currently so she should not have automatically accepted pt but will review referral. CM to follow. Date Signed: 09/03/2017 04:22 PM Electronically Signed By:SRIRAM Rudolph
[2017-09-03] MEDS: BISACODYL 10 MG SUPP PR PRN (18:29)
[2017-09-04] MEDS: EUCERIN LOTION TP SCH ×2 (00:27→22:48)
[2017-09-04] MEDS: TERBINAFINE 30 GM CRTUBE TP SCH ×2 (00:28→22:49)
[2017-09-04 05:13] LABS: % IMMATURE GRANULYOCYTES 0.6 % (0.0-1.1); ABSOLUTE IMMATURE GRANULOCYTES 0.08 10^3/uL (0.00-0.10); ADD DIFF? NO; ADD MORPH? NO; ADD SCAN? YES; ATYPICAL LYMPHOCYTE FLAG 0 (0-99); FRAGMENT RBC FLAG 20 (0-99); HEMATOCRIT 34.6 % (38.0-47.0); HEMOGLOBIN 11.6 g/dL (12.6-16.3); LEFT SHIFT FLG 20 (0-99); LIPEMIA HEMOLYSIS FLAG 80 (0-99); MEAN CELL HEMOGLOBIN 30.1 pg (27.9-34.1); MEAN CELL HEMOGLOBIN CONCENTR. 33.5 g/dL (32.4-36.7); MEAN CELL VOLUME 89.9 fL (81.5-99.8); PLATELET COUNT 195 10^3/uL (150-400); RED BLOOD CELL COUNT 3.85 10^6/uL (4.18-5.33); RED CELL DISTRIBUTION WIDTH 14.6 % (11.5-15.2)
[2017-09-04 05:19] LABS: PLATELET CLUMPS FLAG 300 (0-99)
[2017-09-04 05:21] LABS: ANION GAP 7 mEq/L (8-16); CALCIUM 8.9 mg/dL (8.5-10.4); CARBON DIOXIDE 27 mEq/l (22-31); CHLORIDE 104 mEq/L (97-110); CREATININE 0.6 mg/dL (0.6-1.0); GLOMERULAR FILTRATION RATE > 60; GLUCOSE 103 mg/dL (70-100); POTASSIUM 4.3 mEq/L (3.5-5.2); SODIUM 138 mEq/L (134-144)
[2017-09-04 07:19] LABS: SCAN NEGATIVE
[2017-09-04] MEDS: CHOLECALCIFEROL VIT D3 2,000 UNITS TAB/CAP PO SCH (08:03)
[2017-09-04] MEDS: ASPIRIN 81 MG CHEWABLE TAB PO SCH (08:03)
[2017-09-04] MEDS: DILTIAZEM CD 180 MG CAP PO SCH (08:03)
[2017-09-04] MEDS: APIXABAN 2.5 MG TAB PO SCH ×2 (08:03→18:10)
[2017-09-04] MEDS: VENLAFAXINE HCL 75 MG TAB PO SCH ×2 (08:04→18:10)
[2017-09-04] MEDS: oxyCODONE IR 5 MG TAB PO PRN ×2 (08:04→20:55)
[2017-09-04] MEDS: RIVASTIGMINE TD SCH (08:04)
[2017-09-04] MEDS: ATORVASTATIN CALCIUM 20 MG TAB PO SCH (08:04)
[2017-09-04] MEDS: SENNOSIDES/DOCUSATE SODIUM TAB PO SCH ×2 (08:13→20:55)
--- NOTE | 2017-09-04 10:07 | HOSPPROG ---
Hospitalist Progress Note Assessment/Plan: 87 yo F p/w acute hip fracture in setting of severe dementia. * hip fracture -status post hip pinning on August [address] Arellano -hematoma on right hip area/ will cont close watching/ nursing staff using ice *anemia -will cont close watching / patient is on Eliquis -stable *leukocytosis -afebrile *distended abdomen -will get an abdominal xray for further evaluation * permanent atrial fibrillation -on Eliquis -diltiazem dose increased to 360 mg due to RVR * chronic kidney disease stage 3 * Hematuria * severe dementia with chronic encephalopathy * shingles /healed w few scabs -on acyclovir/has had 10 days /will dc today/ and dc precautions * possible pressure injury present on admission at the right lower extremity site * carotid stenosis -on aspirin and statin therapy * weight increase of 11 kg -on admit weight was 54 kg, now at 65 kg -will follow -has some swelling/ hematoma in right leg * dvt prophlaxis : Eliquis *Plan : get abdominal xray, poss dc later to [facility] Vital Signs Temp Pulse Resp BP Pulse Ox 36.4 C 93 15 130/79 H 97 09/02/17 12:00 09/02/17 12:00 09/02/17 12:00 09/02/17 12:00 09/02/17 12:00 Laboratory Results 09/01/17 04:23 Subjective: Hilton is saying her whole body hurts. Objective: Vital Signs Temp Pulse Resp BP Pulse Ox 36.3 C 119 H 18 142/92 H 92 09/04/17 07:36 09/04/17 08:03 09/04/17 07:36 09/04/17 08:03 09/04/17 07:36 Laboratory Results 09/04/17 04:46 09/04/17 04:46 09/03/17 09/04/17 09/05/17 05:59 05:59 05:59 Intake Total 700 450 Output Total 250 Balance 700 200 PT 17.0 SEC (12.0-15.0) H 08/28/17 13:32 INR 1.39 (0.83-1.16) H 08/28/17 13:32 - Physical Exam Constitutional: chronically ill appearing, uncomfortable, No not in pain Eyes: PERRL Ears, Nose, Mouth, Throat: hearing normal Cardiovascular: regular rate and rhythym, tachycardia Respiratory: no respiratory distress, reduced air movement Gastrointestinal: distension Musculoskeletal: generalized weakness Neurologic: other (alert and oriented only to herself) Psychiatric: poor memory ICD10 Worksheet Patient Problems: Problems Problem Status Onset Fall Acute Fracture of hip, right, closed Acute Catatonia Acute Contusion, hip Acute Low back pain Acute Unable to ambulate Acute
--- NOTE | 2017-09-04 13:44 | ASMTCMCOM ---
CM Note CM Note Notes: Pt not ready to d/c today, [facility] updated and RN updated dghtr. Date Signed: 09/04/2017 01:43 PM Electronically Signed By:SRIRAM Rudolph
[2017-09-04] MEDS: ACETAMINOPHEN 500 MG TAB PO SCH ×2 (15:37→20:56)
[2017-09-04] MEDS: BISACODYL 10 MG SUPP PR PRN (18:14)
[2017-09-05 05:42] LABS: % IMMATURE GRANULYOCYTES 0.5 % (0.0-1.1); ABSOLUTE IMMATURE GRANULOCYTES 0.11 10^3/uL (0.00-0.10); ADD DIFF? NO; ADD MORPH? NO; ADD SCAN? NO; ATYPICAL LYMPHOCYTE FLAG 0 (0-99); FRAGMENT RBC FLAG 20 (0-99); HEMATOCRIT 37.6 % (38.0-47.0); HEMOGLOBIN 12.3 g/dL (12.6-16.3); LEFT SHIFT FLG 20 (0-99); LIPEMIA HEMOLYSIS FLAG 80 (0-99); MEAN CELL HEMOGLOBIN 29.9 pg (27.9-34.1); MEAN CELL HEMOGLOBIN CONCENTR. 32.7 g/dL (32.4-36.7); MEAN CELL VOLUME 91.5 fL (81.5-99.8); MEAN PLATELET VOLUME 14.1 fL (8.7-11.7); PLATELET CLUMPS FLAG 10 (0-99); PLATELET COUNT 142 10^3/uL (150-400); RED BLOOD CELL COUNT 4.11 10^6/uL (4.18-5.33); RED CELL DISTRIBUTION WIDTH 14.8 % (11.5-15.2)
[2017-09-05] MEDS: ACETAMINOPHEN 500 MG TAB PO SCH ×3 (08:29→21:36)
[2017-09-05] MEDS: ATORVASTATIN CALCIUM 20 MG TAB PO SCH (08:30)
[2017-09-05] MEDS: APIXABAN 2.5 MG TAB PO SCH ×2 (08:30→17:35)
[2017-09-05] MEDS: ASPIRIN 81 MG CHEWABLE TAB PO SCH (08:31)
[2017-09-05] MEDS: VENLAFAXINE HCL 75 MG TAB PO SCH ×2 (08:31→17:37)
[2017-09-05] MEDS: CHOLECALCIFEROL VIT D3 2,000 UNITS TAB/CAP PO SCH (08:32)
[2017-09-05] MEDS: SENNOSIDES/DOCUSATE SODIUM TAB PO SCH ×2 (08:33→20:38)
[2017-09-05] MEDS: RIVASTIGMINE TD SCH (09:33)
[2017-09-05] MEDS: DILTIAZEM CD 180 MG CAP PO SCH (12:35)
--- NOTE | 2017-09-05 16:17 | HOSPPROG ---
Hospitalist Progress Note Assessment/Plan: 87 yo F p/w acute hip fracture in setting of severe dementia. * hip fracture -status post hip pinning on August [address] Arellano -hematoma on right hip area/ much improved *anemia -will cont close watching / patient is on Eliquis -stable *leukocytosis/ wbc cont to trend up -afebrile -chest xray shows no infectious etiology -checking ua, will order blood cx *distended abdomen -xray shows constipation -had multiple bowel movements yesterday * permanent atrial fibrillation -on Eliquis -nursing staff says she can't swallow her Cardizem/ can't be crushed because it' s extended release -will change to 30 mg tid, with parameters as when to hold * chronic kidney disease stage 3 * Hematuria * acute on chronic encephalopathy -patient has underlying dementia -she is much improved today and talking * shingles /healed w few scabs -on acyclovir/has had 10 days /will dc today/ and dc precautions * possible pressure injury present on admission at the right lower extremity site * carotid stenosis -on aspirin and statin therapy * weight increase of 11 kg -on admit weight was 54 kg, now at 65 kg -will follow -has some swelling/ hematoma in right leg -this is much improved * dvt prophlaxis : Eliquis *Plan : check ua, check blood cx. Vital Signs Temp Pulse Resp BP Pulse Ox 36.4 C 93 15 130/79 H 97 09/02/17 12:00 09/02/17 12:00 09/02/17 12:00 09/02/17 12:00 09/02/17 12:00 Laboratory Results 09/01/17 04:23 Subjective: jammie is much more talkative/ has no complaints. Objective: Vital Signs Temp Pulse Resp BP Pulse Ox 36.8 C 109 H 16 121/72 H 94 09/05/17 15:03 09/05/17 15:03 09/05/17 15:03 09/05/17 15:03 09/05/17 15:03 Laboratory Results 09/05/17 04:56 09/04/17 04:46 09/04/17 09/05/17 09/06/17 05:59 05:59 05:59 Intake Total 450 Output Total 250 Balance 200 PT 17.0 SEC (12.0-15.0) H 08/28/17 13:32 INR 1.39 (0.83-1.16) H 08/28/17 13:32 - Physical Exam Constitutional: no apparent distress, not in pain, chronically ill appearing Eyes: PERRL Ears, Nose, Mouth, Throat: hard of hearing Cardiovascular: regular rate and rhythym Respiratory: no respiratory distress, reduced air movement Gastrointestinal: normoactive bowel sounds, soft, non-tender abdomen, No tenderness Skin: warm, other (right hip with less swelling/ hematoma is resolving) Musculoskeletal: generalized weakness Neurologic: other (alert and oriented to herself, 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
[2017-09-05] MEDS: EUCERIN LOTION TP SCH (20:36)
[2017-09-05] MEDS: TERBINAFINE 30 GM CRTUBE TP SCH (20:37)
[2017-09-05] MEDS: DILTIAZEM 30 MG TAB PO SCH (21:38)
[2017-09-06 05:17] LABS: % IMMATURE GRANULYOCYTES 0.4 % (0.0-1.1); ABSOLUTE IMMATURE GRANULOCYTES 0.07 10^3/uL (0.00-0.10); ADD DIFF? NO; ADD MORPH? NO; ADD SCAN? YES; ATYPICAL LYMPHOCYTE FLAG 0 (0-99); FRAGMENT RBC FLAG 20 (0-99); HEMATOCRIT 35.8 % (38.0-47.0); HEMOGLOBIN 12.2 g/dL (12.6-16.3); LEFT SHIFT FLG 10 (0-99); LIPEMIA HEMOLYSIS FLAG 90 (0-99); MEAN CELL HEMOGLOBIN 30.6 pg (27.9-34.1); MEAN CELL HEMOGLOBIN CONCENTR. 34.1 g/dL (32.4-36.7); MEAN CELL VOLUME 89.7 fL (81.5-99.8); MEAN PLATELET VOLUME 13.5 fL (8.7-11.7); PLATELET COUNT 245 10^3/uL (150-400); RED BLOOD CELL COUNT 3.99 10^6/uL (4.18-5.33); RED CELL DISTRIBUTION WIDTH 14.8 % (11.5-15.2)
[2017-09-06 05:20] LABS: PLATELET CLUMPS FLAG 300 (0-99)
[2017-09-06] MEDS: DILTIAZEM 30 MG TAB PO SCH ×2 (05:33→14:58)
[2017-09-06 05:55] LABS: SCAN NEGATIVE
[2017-09-06 07:11] VITALS: O2SAT 94
[2017-09-06] MEDS: ATORVASTATIN CALCIUM 20 MG TAB PO SCH (08:00)
[2017-09-06] MEDS: ACETAMINOPHEN 500 MG TAB PO SCH ×2 (08:01→14:59)
[2017-09-06] MEDS: APIXABAN 2.5 MG TAB PO SCH (08:01)
[2017-09-06] MEDS: ASPIRIN 81 MG CHEWABLE TAB PO SCH (08:01)
[2017-09-06] MEDS: CHOLECALCIFEROL VIT D3 2,000 UNITS TAB/CAP PO SCH (08:01)
[2017-09-06] MEDS: VENLAFAXINE HCL 75 MG TAB PO SCH (08:02)
[2017-09-06] MEDS: RIVASTIGMINE TD SCH (08:03)
[2017-09-06] MEDS: SENNOSIDES/DOCUSATE SODIUM TAB PO SCH (08:04)
[2017-09-06 11:32] VITALS: RESP 24; TEMP 97.7
[2017-09-06 12:40] LABS: COLOR YELLOW; LEUKOCYTE ESTERASE,URINE NEGATIVE (NEGATIVE); NITRITE,URINE NEGATIVE (NEGATIVE)
--- NOTE | 2017-09-06 14:17 | HOSPPROG ---
Hospitalist Progress Note Assessment/Plan: 87 yo F p/w acute hip fracture in setting of severe dementia. * hip fracture -status post hip pinning on August [address] Arellano -hematoma on right hip area/ much improved *anemia -will cont close watching / patient is on Eliquis -stable *leukocytosis/ wbc trending down -afebrile -chest xray shows no infectious etiology -ua shows no infection *distended abdomen -xray shows constipation -had multiple bowel movements yesterday * permanent atrial fibrillation -on Eliquis -nursing staff says she can't swallow her Cardizem/ can't be crushed because it' s extended release -will change to 30 mg tid, with parameters as when to hold * chronic kidney disease stage 3 * Hematuria * acute on chronic encephalopathy -patient has underlying dementia -she is much improved today and talking * shingles /healed w few scabs -on acyclovir/has had 10 days /will dc today/ and dc precautions * possible pressure injury present on admission at the right lower extremity site * carotid stenosis -on aspirin and statin therapy * weight increase of 11 kg -on admit weight was 54 kg, now at 65 kg -will follow -has some swelling/ hematoma in right leg -this is much improved * dvt prophlaxis : Eliquis *Plan : dc SNF Vital Signs Temp Pulse Resp BP Pulse Ox 36.4 C 93 15 130/79 H 97 09/02/17 12:00 09/02/17 12:00 09/02/17 12:00 09/02/17 12:00 09/02/17 12:00 Laboratory Results 09/01/17 04:23 Subjective: Hilton has no c/o pain. Objective: Vital Signs Temp Pulse Resp BP Pulse Ox 36.5 C 111 H 24 H 104/70 94 09/06/17 11:31 09/06/17 11:31 09/06/17 11:31 09/06/17 11:31 09/06/17 11:31 Laboratory Results 09/06/17 04:59 09/04/17 04:46 09/05/17 09/06/17 09/07/17 05:59 05:59 05:59 Intake Total 250 Balance 250 PT 17.0 SEC (12.0-15.0) H 08/28/17 13:32 INR 1.39 (0.83-1.16) H 08/28/17 13:32 - Physical Exam Constitutional: chronically ill appearing Eyes: PERRL Ears, Nose, Mouth, Throat: hearing normal Cardiovascular: regular rate and rhythym, tachycardia Respiratory: no respiratory distress, reduced air movement Gastrointestinal: normoactive bowel sounds, soft, non-tender abdomen Skin: warm Musculoskeletal: generalized weakness Neurologic: other (alert ) Psychiatric: poor memory ICD10 Worksheet Patient Problems: Problems Problem Status Onset Fall Acute Fracture of hip, right, closed Acute Catatonia Acute Contusion, hip Acute Low back pain Acute Unable to ambulate Acute
--- NOTE | 2017-09-06 14:22 | PDIAF ---
- Diagnosis Diagnosis: r hip fx s/p repair Code Status: Do Not Resuscitate - Medication Management Discharge Medications: Medications to Continue on Transfer Acetaminophen [Tylenol 325mg (*)] 650 mg PO TID@,, PRN 08/18/17 [Last Taken Unknown] Apixaban [Eliquis] 2.5 mg PO BID@08/18/17 [Last Taken Unknown] Cholecalciferol Vit D3 [Vitamin D3 (*)] 2,000 units PO DAILY@08/18/17 [Last Taken Unknown] Diltiazem HCl [Diltiazem 24Hr ER] 300 mg PO DAILY@08/18/17 [Last Taken Unknown] Mineral Oil/I-Prop Myr/Water [Hydrocerin Lotion] 1 dayron TP HS 08/18/17 [Last Taken Unknown] Rivastigmine [Exelon 9.5mg/24 hrs] 1 each TD DAILY@08/18/17 [Last Taken Unknown] Sennosides/Docusate Sodium [SENEXON-S TABLET] 1 each PO BID PRN 08/18/17 [Last Taken Unknown] Terbinafine HCl [LamISIL AT Cream (*)] 1 dayron TP HS 08/18/17 [Last Taken Unknown] Venlafaxine HCl [Venlafaxine 75MG (*)] 75 mg PO BID@08/18/17 [Last Taken Unknown] Aspirin [Aspirin 81mg (*)] 81 mg PO DAILY@08/28/17 [Last Taken Unknown] Atorvastatin Calcium [Lipitor 20 mg (*)] 20 mg PO DAILY@08/28/17 [Last Taken Unknown] Diclofenac Sodium 1% [Voltaren Gel (*)] 4 gm TP BID@ PRN 08/28/17 [Last Taken Unknown] Acetaminophen [Tylenol ES 500 mg (*)] 1,000 mg PO TID tab 09/06/17 [Last Taken Unknown] Polyethylene Glycol 3350 [Miralax 17 gm (*)] 17 gm PO DAILY PRN pkt 09/06/17 [ Last Taken Unknown] oxyCODONE IR [Oxycodone Ir (*)] 2.5 - 5 mg PO Q4 PRN tab 09/06/17 [Last Taken Unknown] Discharge Medications: Refer to the Discharge Home Medication list for PRN reason. - Orders Services needed: Physical Therapy, Occupational Therapy Diet Recommendation: no restrictions on diet Diet Texture: Regular Texture Diet Muhammad: Yes (urine retention) Wound Care Instructions: Please apply Calazime to shingles lesions on R buttock and R upper thigh BID and PRN w/ pericare. Keep patient brief-free to reduce heat/pressure/moisture to area. - Labs/Radiology BMP Date: 09/11/17 CBC Date: 09/11/17 - Follow Up Care Current Providers and Referrals: Samara Arellano MD [Medical Doctor] - 09/12/17 (ORTHO FOLLOW UP FOR STAPLE REMOVAL AND POST OP CHECK. CALL TO CONFIRM APPT. ) Patient,NotPresent [Unknown] - As per Instructions
[2017-09-06 15:03] VITALS: PULSE 106
[2017-09-06 15:34] VITALS: BP 137/99
--- NOTE | 2017-09-06 15:47 | ASMTCMCOM ---
CM Note CM Note Notes: Pt medically stable for d/c to [facility]. Stretcher transport set up [facility] for 15:30 to bill pt insurance. DARLENE Gabriel to call report. Orders sent in All[employer]. Date Signed: 09/06/2017 03:46 PM Electronically Signed By:SRIRAM Rudolph
--- NOTE | 2017-09-06 15:48 | ASMTCMCOM ---
CM Note CM Note Notes: Pt dghtr Marge notified of pt d/c and transport time. Date Signed: 09/06/2017 03:47 PM Electronically Signed By:SRIRAM Rudolph
--- NOTE | 2017-09-06 15:59 | ASDISCHSUM ---
Discharge Information Plan Status:SNF Medically Cleared to Leave: Discharge Date:09/06/2017 03:57 PM CM D/C Disposition:Shelter Facility ADT D/C Disposition:Shelter Facility Projected Discharge Date:09/04/2017 11:00 AM Transportation at D/C:ALS/BLS Discharge Delay Reason: Follow-Up Date:09/04/2017 11:00 AM Discharge Slot: Final Diagnosis: Placement Information Referral Type:*Long Term/SNF Referral ID:[id number] Provider Name:[facility] Address 1:[address] Address 2: City:[place] Selection Factors: State:[place] Patient Contact Information Contact Name:BERRY Relationship:Daughter Address: [place]: [facility] Phone: [facility]/Zip Code: Email: Financial Information Financial Class: Primary Plan Desc:MEDICARE INPATIENT Primary Plan Number:[id number] Secondary Plan Desc:[employer]UN[employer] PPO Secondary Plan Number:[id number] Assessment Information [facility] CM Progress Note CM Note CM Note Notes: Pt lives at [facility] [place], may need SNF. PT/OT to eval Date Signed: 08/29/2017 05:15 PM Electronically Signed By:Carolyn Das RN [facility] CM Progress Note CM Note CM Note Notes: Pt. is an 87-year-old woman admitted after a fall where she hit her head. Pt. w/ severe dementia. Pt. lives at [facility] in memory care. Plan to return there after rehab stay. Pt. on airborne precautions for shingles. Maria A met w/ daughter Marge in [facility] today. Marge would like SNF referrals sent to [facility]. SWer sent referrals via [employer] today. PT ordered, but consult not yet complete. Voalted PTs who will figure out who will consult. Daughter requesting sitter - SWer let loss prevention specialist and RN know. Discussed whether daughter thought Pt. was close to hospice care yet. Daughter aware of Pt's process and decline over 5 years and does not thinks she is currently ready. Encouraged dtr to engage w/ care providers about hospice if daughter fell it was indicated. Plan for SNF d/c when Pt. accepted and Pt. ready for d/c. Date Signed: 08/31/2017 12:44 PM Electronically Signed By:Drea Guevara LCSW [facility] CM Progress Note CM Note CM Note Notes: Chart reviewed. Spoke with patient's RN. She is very confused and needs a sitter. Unable to converse. Referrals pending CM to follow. Date Signed: 09/01/2017 03:26 PM Electronically Signed By:Jaqui Mckeon RN [facility] CM Progress Note CM Note CM Note Notes: Yi from [facility] here today. They are considering pt for admission. Pt still has sitter for safety not behaviors and will need to be sitter-free for 24 hrs before d/c to SNF. Per PT pt is able to follow directions. Pt is still on precautions for shingles. Date Signed: 09/02/2017 04:42 PM Electronically Signed By:SRIRAM Lucio BC CM Progress Note CM Note CM Note Notes: Pt accepted at [facility] after 24 hours off sitter. Pt no longer has sitter as of 12:00 today. TC to [facility] to see status of [facility], [facility] Chris calls back to report she thought pt was a member and lived at currently so she should not have automatically accepted pt but will review referral. CM to follow. Date Signed: 09/03/2017 04:22 PM Electronically Signed By:SRIRAM Rudolph [facility] CM Progress Note CM Note CM Note Notes: Pt not ready to d/c today, [facility] Date Signed: 09/04/2017 01:43 PM Electronically Signed By:SRIRAM Rudolph [facility] CM Progress Note CM Note CM Note Notes: Pt medically stable for d/c to [facility]. Stretcher transport set up [facility] for 15:30 to bill pt insurance. DARLENE Gabriel to call report. Orders sent in Allscripts. Date Signed: 09/06/2017 03:46 PM Electronically Signed By:SRIRAM Rudolph [facility] CM Progress Note CM Note CM Note Notes: Pt kat Bird notified of pt d/c and transport time. Date Signed: 09/06/2017 03:47 PM Electronically Signed By:SRIRAM Rudolph Intervention Information Intervention Type:*Incorrect Registration Date of Service:08/29/2017 12:33 PM Patient Type:Inpatient Staff Member:DARLENE Piña Courtney Hours: Discipline: Severity: Comment: Intervention Type:*IM-Signed Date of Service:09/06/2017 03:34 PM Patient Type:Inpatient Staff Member:Zoe Hamm Hours: Discipline: Severity: Comment:
--- NOTE | 2017-09-06 21:44 | GDS ---
[f rep st] DISCHARGE SUMMARY DISCHARGE DIAGNOSES: 1. Right-sided hip fracture, status post hip pinning with Dr. Arellano on August 30. 2. Anemia. 3. Leukocytosis. 4. Distended abdomen. 5. Permanent atrial fibrillation, on Eliquis. 6. Chronic kidney disease. 7. Hematuria with urinary retention. 8. Acute on chronic encephalopathy with underlying dementia. 9. Shingles that is healed. 10. Carotid stenosis. 11. Weight increase. CONSULTATIONS: 1. Dr. Angel Marie. 2. Dr. Dirk Calderon. HISTORY: Briefly, the patient is an 87-year-old woman with a history of mechanical fall onto her rig ht hip on 08/28/2017. She had subsequent right hip pain and was unable to bear weight. She was foun d to have a right femoral neck fracture, minimally displaced. She also was noted to have right butto ck and posterior thigh shingles. During her stay, she was seen by Dr. Arellano. On 08/30/2017, she had a right hip pinning with 3 screws. She did well with surgery, developed a hematoma at the incis ion site that improved with icing. She also developed significant leukocytosis and constipation. Th ere is no clear-cut cause of her leukocytosis. Urinalysis was performed, which was stable. A chest x-ray was performed that was stable. Today, she will be discharged to [facility] for further rehab. HOSPITAL COURSE: 1. Hip fracture. She is status post pinning on August 30. Overall, the pain has much improved. 2. Anemia. This has been stable. We have watch this closely because she is on Eliquis. 3. Leukocytosis. White blood cell count is starting to trend down today. She has been febrile. est x-ray and urinalysis showed no etiology of infection. 4. Distended abdomen. This is from constipation. This improved after she had multiple bowel moveme nts. 5. Permanent atrial fibrillation. At times, she has RVR. She has difficulty swallowing her Cardize m, but is doing better now that she is more alert. She does have some breakthrough tachycardia at ti mes. 6. Chronic kidney disease, stage 3. 7. Hematuria with associated urinary retention. A Muhammad was placed back in prior to discharge. She was retaining a 1,000 mL of urine. 8. Acute on chronic encephalopathy. She has significant dementia. She is clearer and more talkativ e today. 9. Shingles. This has healed with a few scabs. She received 10 days of acyclovir. 10. Carotid stenosis. She is on aspirin and statin therapy. 11. Possible pressure injury on admission at the right lower extremity site. Instructions have been given for the [facility] facility. 12. Increased weight. I suspect that this is from getting IV hydration. She has not been mobilizin g. DISCHARGE CONDITION: Stable. Blood pressure is 130/79, O2 sats on room air 97%, respiratory rate is 15, pulse is 93, temperature is 36.4 Celsius. MEDICATIONS AT DISCHARGE: Please see the EMR. DISCHARGE INSTRUCTIONS: 1. To follow up with Dr. Arellano. 2. To check her labs next week. 3. If she does have fever, chills, chest pain, or shortness of breath, return to the ER. Greater than 30 minutes discharging and coordinating patient's care. /[id number]
== END 2017-09-06 15:57 | DRG 480 ==
LOC: EDUNIT# → OBSVTOIN 13:49 → F3E 20:26 → F3N 08-30 09:40
PROVIDERS: ADMIT Internal Medicine; ATTEND Student in an Organized Health Care Education/Training Program
PROC: 0QS604Z Reposition Right Upper Femur with Internal Fixation Device, Open Approach (ICD-10-PCS; principal; 2017-08-30 07:15)
DX: S72.001A Fracture of unspecified part of neck of right femur, initial encounter for closed fracture (principal); W01.0XXA Fall on same level from slipping, tripping and stumbling without subsequent striking against object, initial encounter; Y92.169 Unspecified place in school dormitory as the place of occurrence of the external cause; G93.40 Encephalopathy, unspecified; R31.9 Hematuria, unspecified; R33.9 Retention of urine, unspecified; I48.2 Chronic atrial fibrillation; N18.3 Chronic kidney disease, stage 3 (moderate); I65.23 Occlusion and stenosis of bilateral carotid arteries; D64.9 Anemia, unspecified; B02.9 Zoster without complications; F03.90 Unspecified dementia, unspecified severity, without behavioral disturbance, psychotic disturbance, mood disturbance, and anxiety; Z85.3 Personal history of malignant neoplasm of breast; Z66 Do not resuscitate; Z23 Encounter for immunization
CPT/HCPCS: 97116-GP; 97161-GP; 97166-GO; 97530-GP; 97535-GO; C1713; C1769; G0008; G0009; G8978-GP-CL; G8979-GP-CJ; G8987-GO-CM; G8988-GO-CK; J0690; J1100; J1170; J2370; J2405; J2704; J3010